=== PATIENT | female | born 1950 | race Caucasian/White ===

== ENCOUNTER 2018-05-24 16:51 | Inpatient (IN) ==
[2018-05-24] MEDS ORDERED: Sod Chloride 0.9% Inj 1,000 ML IV.CONT SCH (17:15)
--- NOTE | 2018-05-24 17:34 | ED ---
HPI General Chief Complaint: Recheck/Abnormal Lab/Rx Stated Complaint: Sent by dr Time Seen by Provider: 05/24/18 17:01 Source: patient and family Mode of arrival: ambulatory Limitations: no limitations History of Present Illness HPI narrative: 67-year-old female states she had a gallbladder attack a couple weeks ago but by the time she got and she was better. She states she started having one again yesterday and Dr. Almanzar had her do blood work as an outpatient and said she had pancreatitis and she did come here for emergent surgery. Patient denies other complaints other than abdominal pain. Quality is sharp. complaint: abnormal lab Symptoms since prior visit: worsening pain Context: called for abnormal lab result Associated symptoms: abdominal pain Related Data Home Medications Medication Instructions Recorded Confirmed cetirizine [Zyrtec] 10 mg PO DAILY 04/28/18 05/24/18 cholecalciferol (vitamin D3) 1,000 unit PO DAILY 04/28/18 05/24/18 [Vitamin D3] cyclosporine [Restasis] 1 drp OPHTHALMIC (EYE) Q12H 04/28/18 05/24/18 estradiol 1 patch TRANSDERMAL QWEEK 04/28/18 05/24/18 fluoxetine 10 mg PO DAILY 04/28/18 05/24/18 fluticasone 1 spray INTRANASAL DAILY 04/28/18 05/24/18 liothyronine 5 mcg PO DAILY 04/28/18 05/24/18 omeprazole 20 mg PO DAILY 04/28/18 05/24/18 thyroid (pork) [Nature-Throid] 65 mg PO DAILY 04/28/18 05/24/18 Allergies Allergy/AdvReac Type Severity Reaction Status Date / Time No Known Allergies Allergy Unverified 04/28/18 16:28 Review of Systems ROS: all other systems reviewed are negative [facility] Medical History Medical History GERD (gastroesophageal reflux disease) (Chronic) Hypothyroidism (Chronic) Post-menopausal (Chronic) H/O: hysterectomy (Resolved) Hx of thyroid cancer (Resolved) Surgical History Surgical History H/O laminectomy (Resolved) H/O tubal ligation (Resolved) Hx of appendectomy (Resolved) Social History Social History Second Hand Smoke Exposure: No Smoking Status: Unknown if ever smoked How Often Do You Have a Drink Containing Alcohol: Unable to Obtain Recent Travel in [place] within the Last 8 Weeks: No Recent Out of Country Travel within the Last 8 Weeks: No Exam Narrative Exam Narrative: GENERAL: 67 y/o female in no apparent distress SKIN: Focused skin assessment warm/dry. HEAD: Atraumatic. Normocephalic. EYES: Pupils equal and round. No scleral icterus. No injection or drainage. ENT: No nasal bleeding or discharge. Mucous membranes pink and moist. NECK: Trachea midline. No JVD. CARDIOVASCULAR: Regular rate and rhythm. RESPIRATORY: No accessory muscle use. Clear to auscultation. Breath sounds equal bilaterally. GASTROINTESTINAL: Abdomen soft, mild ttp diffusely, nondistended. MUSCULOSKELETAL: No obvious deformities. No clubbing. No cyanosis. No edema. NEUROLOGICAL: Awake and alert. No obvious cranial nerve deficits. Motor grossly within normal limits. Normal speech. Course Reevaluation(s) Reevaluation #1: Patient updated and agrees to admission, provided morphine for pain control Consultations Consultation #1: Dr. Almanzar states to check CT abdomen pelvis and admit for medicine with GI consult for likely gallstone pancreatitis Consultation #2: dr kwan states to admit full inpatient Initial Documented Vital Signs Temperature 97.9 F 05/24/18 16:55 Pulse Rate 86 05/24/18 16:55 Respiratory Rate 12 05/24/18 16:55 Blood Pressure 123/73 05/24/18 16:55 Pulse Oximetry 97 05/24/18 16:55 Last Documented Vital Signs Temperature 97.9 F 05/24/18 16:55 Pulse Rate 75 05/24/18 18:15 Respiratory Rate 20 05/24/18 18:15 Blood Pressure 135/87 05/24/18 18:15 Pulse Oximetry 97 05/24/18 16:55 Medical Decision Making MDM Narrative Medical decision making narrative: Will repeat blood work and discuss with her surgeon Medical Screen Exam Complete: Yes Emergency Medical Condition: Yes Differential Diagnosis Differential Diagnosis: Gallstone pancreatitis, pancreatitis, cholecystitis Lab Data Lab results reviewed: Yes I reviewed the patient's lab results. Result diagrams: 05/24/18 17:18 05/24/18 17:18 Lab Results 05/24/18 05/24/18 Range/Units 17:18 17:18 WBC 11.6 H (4.0-11.0) th/mm3 RBC 4.48 (4.00-5.30) mil/mm3 Hgb 13.3 (11.6-15.3) gm/dL Hct 39.2 (35.0-46.0) % MCV 87.4 (80.0-100.0) fL MCH 29.7 (27.0-34.0) pg MCHC 34.0 (32.0-36.0) % RDW 13.4 (11.6-17.2) % Plt Count 135 L (150-450) th/mm3 MPV 8.8 (7.0-11.0) fL Neut % (Auto) 92.0 H (16.0-70.0) % Lymph % (Auto) 3.7 L (9.0-44.0) % Parke % (Auto) 3.3 (0.0-8.0) % Eos % (Auto) 0.7 (0.0-4.0) % Baso % (Auto) 0.3 (0.0-2.0) % Neut # (Auto) 10.7 H (1.8-7.7) th/mm3 Lymph # (Auto) 0.4 L (1.0-4.8) th/mm3 Parke # (Auto) 0.4 (0.0-0.9) th/mm3 Eos # (Auto) 0.1 (0.0-0.4) th/mm3 Baso # (Auto) 0.0 (0.0-0.2) th/mm3 WBC Differential . Differential Comment Auto diff final Sodium 137 (136-145) meq/L Potassium 3.5 (3.5-5.1) meq/L Chloride 98 (98-107) meq/L Carbon Dioxide 27.7 (21.0-32.0) meq/L Anion Gap 11 (5-15) meq/L BUN 11 (7-18) mg/dL Creatinine 0.76 (0.50-1.00) mg/dL Estimated GFR 76 L (>89) mL/min Random Glucose 96 (74-106) mg/dL Calcium 8.5 (8.5-10.1) mg/dL Total Bilirubin 4.3 H (0.2-1.0) mg/dL AST 241 H (15-37) U/L ALT 398 H (10-53) U/L Alkaline Phosphatase 159 H (45-117) U/L Total Protein 7.2 (6.4-8.2) g/dL Albumin 3.5 (3.4-5.0) g/dL Lipase 339 (73-393) U/L Discharge Plan Discharge Disposition Patient Disposition: 30 Still Patient Discharge Details Diagnosis: Elevated LFTs, Abdominal pain Physicians Team ED Provider: Elvira Hernandes Primary Care Provider: Rebeca Spencer Attending Provider: Aydin Kwan Other Providers: Page Smith Discharge Interventions Interventions: Vital Signs Last Done: 05/24/18 18:15 Status ED Status: Admitted Patient
[2018-05-24] MEDS ORDERED: Morphine Inj 4 MG/ML Vial IV.PUSH ONE (17:35)
[2018-05-24 17:39] LABS: Baso % (Auto) 0.3 % (0.0-2.0); Eos # (Auto) 0.1 th/mm3 (0.0-0.4); Eos % (Auto) 0.7 % (0.0-4.0); Hematocrit 39.2 % (35.0-46.0); Hemoglobin 13.3 gm/dL (11.6-15.3); Lymph # (Auto) 0.4 th/mm3 (1.0-4.8); Lymph % (Auto) 3.7 % (9.0-44.0); Mean Corpuscular Hemoglobin 29.7 pg (27.0-34.0); Mean Corpuscular Volume 87.4 fL (80.0-100.0); Mean Platelet Volume 8.8 fL (7.0-11.0); Mono # (Auto) 0.4 th/mm3 (0.0-0.9); Mono % (Auto) 3.3 % (0.0-8.0); Neut # (Auto) 10.7 th/mm3 (1.8-7.7); Platelet Count 135 th/mm3 (150-450); Red Blood Count 4.48 mil/mm3 (4.00-5.30); Red Cell Distribution Width 13.4 % (11.6-17.2); White Blood Count 11.6 th/mm3 (4.0-11.0)
[2018-05-24 17:56] LABS: Alanine Aminotransferase 398 U/L (10-53); Albumin 3.5 g/dL (3.4-5.0); Anion Gap 11 meq/L (5-15); Aspartate Aminotransferase 241 U/L (15-37); Blood Urea Nitrogen 11 mg/dL (7-18); Calcium 8.5 mg/dL (8.5-10.1); Carbon Dioxide 27.7 meq/L (21.0-32.0); Chloride 98 meq/L (98-107); Glomerular Filtration Rate 76 mL/min (>89); Glucose,Random 96 mg/dL (74-106); Lipase 339 U/L (73-393); Potassium 3.5 meq/L (3.5-5.1); Sodium 137 meq/L (136-145)
[2018-05-24 17:58] LABS: Alkaline Phosphatase 159 U/L (45-117); Total Protein 7.2 g/dL (6.4-8.2)
[2018-05-24] MEDS ORDERED: Bisacodyl 10 MG Supp RECTAL PRN (18:07)
--- NOTE | 2018-05-24 18:27 | P.HPIM ---
History of Present Illness Primary Care Physician: Rebeca Spencer MD Chief Complaint: Abdominal pain History of Present Illness: Mrs. Patricia is a 67 y/o female with GERD, Le's esophagus, CHAPIS, and hx of medullary thyroid cancer. She presented to the ED at [facility] on 05/24/18 with complaints of abdominal. She states that this began about 1 month ago intermittently and was seen at [facility] urgent care for evaluation. She was sent for labs and abdominal US. Her labs on 04/26/18 revealed TBili 4.5, AST 269, ALT 362 , AlkPhos 166. Her Abd US (04/26/18) revealed numerous gallstones, mild gallbladder wall thickening with distension of the gallbladder and a dilated CBD to 9.4mm with no filing defects noted. Pt was sent to see GI as an outpt. Repeat labs on 04/28/18 noted Tbili 0.6, AST 45, ALT 162, AlkPhos 133 and lipase 354. 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 Pt had followed up with General Surgery, Dr. Lynch, and pt states that she had been planned for outpt cholecystectomy tomorrow. Yesterday she developed increased abdominal pain, N/V and was sent for repeat blood work today by her surgeon. The blood work revealed Tbili 4.6, DBili 3.8, AST 311, AlkPhos 439, AlkPhos 164, Lipase 937. Pt was recommended to come to the ED for further evaluation. Her repeat labs after arriving to the ED noted Tbili 4.3, AST 241, ALT 398, AlkPhos 159. Pt was given pain medications and antiemetics and is currently comfortable and denies any nausea/vomiting. Past Medical Hx: Anxiety Arthritis Hx of Le's esophagus GERD Hx of medullary thyroid cancer s/p thyroidectomy Hypothyroidism Depression Allergic rhinitis Past Surgical Hx: Thyroidectomy Appendectomy Tubal ligation Hysterectomy Laparoscopy Lumbar laminectomy EGD/colonoscopy on 04/08/2017 --> reflux esophagitis, acute gastritis, mild diverticulosis, internal hemorrhoids Family Hx: Father with hx of colon cancer, bone cancer, thyroid cancer Brother with hx of thyroid cancer Social Hx: Rare social alcohol use Denies any tobacco or illicit drug use - Diagnosis (1) Pancreatitis (2) Elevated LFTs (3) Abdominal pain Inpatient Certification: I certify that the inpatient services were ordered in accordance with Medicare regulations governing the order. This includes certification that hospital inpatient services are reasonable and necessary and in the case of services not specified as inpatient-only under 42 CFR 419.22(n), that they are appropriately provided as inpatient services in accordance to with the 2-midnight benchmark under 43 CFR 412.3(e) Estimated Total Length of Stay (Days): 3 Plans for Post Hospital Care: Not yet determined Review of Systems Constitutional: Denies chills, Denies fever(s) Eyes: Denies change in vision, Denies double vision, Denies loss of vision Ears, Nose, Mouth, and Throat: Denies dizziness, Denies headache(s), Denies nasal congestion, Denies nasal discharge, Denies sore throat Cardiovascular: Denies chest pain, Denies rapid, pounding, or irregular heartbeat, Denies shortness of breath Respiratory: Denies cough, Denies shortness of breath with activity Gastrointestinal: Reports abdominal pain, Reports nausea, Reports vomiting, Denies difficulty swallowing Genitourinary: Denies urinary incontinence, Denies urinary urgency Musculoskeletal: Denies back pain, Denies neck pain Skin/Breast: Denies redness, Denies wounds, Denies yellowing of the skin Neurologic: Denies memory loss, Denies tingling/numbness/burning sensations PMFSH - History History Provided By: Patient - Medical History Medical History: Medical History (Last Reviewed 05/24/18 @ 17:32 by Elvira Hernandes MD) GERD (gastroesophageal reflux disease) Hypothyroidism Post-menopausal H/O: hysterectomy Hx of thyroid cancer - Surgical History Surgical History: Surgical History (Last Reviewed 05/24/18 @ 17:32 by Elvira Hernandes MD) H/O laminectomy H/O tubal ligation Hx of appendectomy - Tobacco History Second Hand Smoke Exposure: No Smoking Status: Unknown if ever smoked - Alcohol History How Often Do You Have a Drink Containing Alcohol: Unable to Obtain - Travel History Recent Travel in the [place] Within the Last 8 Weeks: No Recent Travel Out of the Country Within the Last 8 Weeks: No - Immunization History Tetanus Immunization: Unsure Medications and Allergies Allergies Allergy/AdvReac Type Severity Reaction Status Date / Time No Known Allergies Allergy Unverified 04/28/18 16:28 Home Medications Medication Instructions Recorded Confirmed Type cetirizine [Zyrtec] 10 mg PO DAILY 04/28/18 05/24/18 History cholecalciferol (vitamin D3) 1,000 unit PO DAILY 04/28/18 05/24/18 History [Vitamin D3] cyclosporine [Restasis] 1 drp OPHTHALMIC (EYE) Q12H 04/28/18 05/24/18 History estradiol 1 patch TRANSDERMAL QWEEK 04/28/18 05/24/18 History fluoxetine 10 mg PO DAILY 04/28/18 05/24/18 History fluticasone 1 spray INTRANASAL DAILY 04/28/18 05/24/18 History liothyronine 15 mcg PO EVERY OTHER DAY 04/28/18 05/24/18 History omeprazole 20 mg PO DAILY 04/28/18 05/24/18 History thyroid (pork) [Nature-Throid] 65 mg PO DAILY 04/28/18 05/24/18 History liothyronine 20 mcg PO EVERY OTHER DAY 05/24/18 05/24/18 History Active Medications: Active Medications Acetaminophen (Tylenol) 650 mg PO Q4H PRN PRN Reason: Temp > 100.4 Al Hydroxide/Mg Hydroxide (Milk Of Magnesia Liq) 30 ml PO Q12H PRN PRN Reason: Mild Constipation Bisacodyl (Dulcolax Supp) 10 mg RECTAL DAILY PRN PRN Reason: SEVERE CONSITIPATION Sodium Chloride (Ns Inj) 1,000 mls @ 125 mls/hr IV.CONT .Q8H ELYSIA Stop: 05/25/18 01:14 Last Admin: 05/24/18 17:25 Dose: 125 mls/hr Lactulose (Lactulose Liq) 30 ml PO DAILY PRN PRN Reason: SEVERE CONSITIPATION Morphine Sulfate (Morphine Inj) 4 mg IV.PUSH Q4H PRN PRN Reason: pain 2-10 Ondansetron HCl (Zofran Inj) 4 mg IV.PUSH Q6H PRN PRN Reason: NAUSEA OR VOMITING Senna/Docusate Sodium (Donna-Colace) 1 tab PO BID ELYSIA Sennosides (Senokot) 17.2 mg PO Q12H PRN PRN Reason: Moderate Constipation Sodium Chloride (Ns Flush) 2 ml IV.FLUSH PRN PRN PRN Reason: FLUSH AFTER USING IV ACCESS Exam Vital signs: Vital Signs 05/24/18 16:55 05/24/18 18:15 Temperature 97.9 F Pulse Rate 86 75 Respiratory Rate 12 20 Blood Pressure 123/73 135/87 Pulse Oximetry 97 Intake & Output 05/23/18 05/24/18 05/24/18 18:59 06:59 18:59 Weight 74.843 kg Narrative: GENERAL: NAD, AAOx3 SKIN: Warm and dry. HEAD: Atraumatic. Normocephalic. EYES: Pupils equal and round. No scleral icterus. No injection or drainage. ENT: No nasal bleeding or discharge. Mucous membranes pink and moist. NECK: Trachea midline. No JVD. CARDIOVASCULAR: Regular rate and rhythm. RESPIRATORY: No accessory muscle use. Clear to auscultation. Breath sounds equal bilaterally. GASTROINTESTINAL: Abdomen soft, non-tender, nondistended. Hepatic and splenic margins not palpable. MUSCULOSKELETAL: Extremities without clubbing, cyanosis, or edema. No obvious deformities. NEUROLOGICAL: Awake and alert. No obvious cranial nerve deficits. Motor grossly within normal limits. Five out of 5 muscle strength in the arms and legs. Normal speech. PSYCHIATRIC: Appropriate mood and affect; insight and judgment normal. Results - Labs CBC & Chem 7: 05/25/18 04:08 05/28/18 04:28 Labs: Short CBC 05/24/18 Range/Units 17:18 WBC 11.6 H (4.0-11.0) th/mm3 Hgb 13.3 (11.6-15.3) gm/dL Hct 39.2 (35.0-46.0) % Plt Count 135 L (150-450) th/mm3 BMP 05/24/18 17:18 Sodium 137 Potassium 3.5 Chloride 98 Carbon Dioxide 27.7 BUN 11 Creatinine 0.76 Calcium 8.5 Liver Function 05/24/18 Range/Units 17:18 Total Bilirubin 4.3 H (0.2-1.0) mg/dL AST 241 H (15-37) U/L ALT 398 H (10-53) U/L Alkaline Phosphatase 159 H (45-117) U/L Albumin 3.5 (3.4-5.0) g/dL Caprini VTE Risk Assessment Caprini VTE Risk Assessment: Moderate/High Risk (score >= 2) Caprini Risk Assessment Model: Point Value = 1 Point Value = 2 Point Value = 3 Point Value = 5 Age 41-60 Minor surgery BMI > 25 kg/m2 Swollen legs Varicose veins or History of unexplained or recurrent spontaneous Oral contraceptives or hormone replacement Sepsis (< 1 month) Serious lung disease, including pneumonia (< 1 month) Abnormal pulmonary function Acute myocardial infarction Congestive heart failure (< 1 month) History of inflammatory bowel disease Medical patient at bed rest Age 61-74 Arthroscopic surgery Major open surgery (> 45 min) Laparoscopic surgery (> 45 min) Malignancy Confined to bed (> 72 hours) Immobilizing plaster cast Central venous access Age >= 75 History of VTE Family history of VTE Factor V Leiden Prothrombin [id number] Lupus anticoagulant Anticardiolipin antibodies Elevated serum homocysteine Heparin-induced thrombocytopenia Other congenital or acquired thrombophilia Stroke (< 1 month) Elective arthroplasty Hip, pelvis, or leg fracture Acute spinal cord injury (< 1 month) Prophylaxis Regimen: Total Risk Factor Score Risk Level Prophylaxis Regimen 0-1 Low Early ambulation 2 Moderate Order ONE of the following: *Sequential Compression Device (SCD) *Heparin 5000 units SQ BID 3-4 Higher Order ONE of the following medications: *Heparin 5000 units SQ TID *Enoxaparin/Lovenox 40 mg SQ daily (WT < 150 kg, CrCl > 30 mL/min) *Enoxaparin/Lovenox 30 mg SQ daily (WT < 150 kg, CrCl > 10-29 mL/min) *Enoxaparin/Lovenox 30 mg SQ BID (WT < 150 kg, CrCl > 30 mL/min) AND/OR *Sequential Compression Device (SCD) 5 or more Highest Order ONE of the following medications: *Heparin 5000 units SQ TID (Preferred with Epidurals) *Enoxaparin/Lovenox 40 mg SQ daily (WT < 150 kg, CrCl > 30 mL/min) *Enoxaparin/Lovenox 30 mg SQ daily (WT < 150 kg, CrCl > 10-29 mL/min) *Enoxaparin/Lovenox 30 mg SQ BID (WT < 150 kg, CrCl > 30 mL/min) AND *Sequential Compression Device (SCD) Assessment and Plan - Assessment (1) Pancreatitis Code(s): K85.90 - Acute pancreatitis without necrosis or infection, unspecified Status: Acute Plan: Pancreatitis, likely related to gallstones Elevated LFTs Abdominal pain - Pt is a 67 y/o female with GERD, Le's esophagus, CHAPIS, and hx of medullary thyroid cancer. - She presented to the ED at [facility] on 05/24/18 with complaints of abdominal, which began about 1 month ago intermittently - Outpt labs on 04/26/18 revealed TBili 4.5, AST 269, ALT 362, AlkPhos 166. - Outpt Abd US (04/26/18) revealed numerous gallstones, mild gallbladder wall thickening with distension of the gallbladder and a dilated CBD to 9.4mm with no filing defects noted. - Pt was sent to see GI as an outpt. Repeat labs on 04/28/18 noted Tbili 0.6, AST 45, ALT 162, AlkPhos 133 and lipase 354. 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 - Pt had followed up with General Surgery, Dr. Lynch, and pt states that she had been planned for outpt cholecystectomy tomorrow. Yesterday she developed increased abdominal pain, N/V and was sent for repeat blood work today by her surgeon. - Outpt blood work (05/24) revealed Tbili 4.6, DBili 3.8, AST 311, AlkPhos 439, AlkPhos 164, Lipase 937. Pt was recommended to come to the ED for further evaluation. Her repeat labs after arriving to the ED noted Tbili 4.3, AST 241, ALT 398, AlkPhos 159. - IVF - Pain control PRN - Antiemetics PRN - Keep pt NPO except meds for now - Repeat labs in AM - MRCP - Consult GI for further recommendations - May need General Surgery consult in AM - Supportive care - Further recommendations as the case develops - DVT prophylaxis with SCDs for now Hypothyroidism Hx of medullary thyroid cancer - Cont. home meds, Cytomel 15mg alternating with 20mcg dose every other day GERD Hx of Le's esophagus - PPI (2) Elevated LFTs Code(s): R94.5 - Abnormal results of liver function studies Status: Acute (3) Abdominal pain Code(s): R10.9 - Unspecified abdominal pain Status: Acute - Attending Attestation Patient examined. Assessment and plan formulated with Orly SHEFFIELD I agree with the above. (3) Abdominal pain Qualifiers: Abdominal location: unspecified location Qualified Code(s): R10.9 - Unspecified abdominal pain
[2018-05-24] MEDS ORDERED: CYCLOSPORINE EACH EYE SCH (21:00)
[2018-05-24] MEDS ORDERED: Gadobutrol PF 7.5 MMOL/7.5 ML Vial (for RAD) IV.SIG ONE (21:44)
--- NOTE | 2018-05-24 23:28 | MR ---
EXAM DATE: 05/24/2018 10:25 PM EDT AGE/SEX: 67 years / Female INDICATIONS: Obstruction. Patient had IPMN noted on outpt MRCP 05/07/18 for compare, now gallstone panc reatis CLINICAL DATA: This is the patient's subsequent encounter. Patient reports that signs and symptoms h ave been present for 3 days and indicates a pain score of 8/10. MEDICAL/SURGICAL HISTORY: Carcinoma, thyroid. Thyroidectomy. Appendectomy. Hysterectomy. Tub al, Lamenectomy. COMPARISON: [facility], MRCP, 05/07/2018. . TECHNIQUE: Multisequence, multiplanar MRI examination was performed without contrast and after the in travenous administration of 8 ml Gadavist (gadobutrol) contrast as a single exam dose. FINDINGS: Liver: The liver is homogeneous and normal in signal intensity with no focal defects. Intrahepatic Bile Ducts: There is no intrahepatic biliary ductal dilatation. Common Bile Duct: Common bile duct measures 7 to 8 mm in diameter. No filling defects identified. Gallbladder: Multiple gallstones are again identified. No evidence of gallbladder wall thickening. Pancreas: The 1 cm thin elongated T2 hyperintensity indicating with the main pancreatic duct in the pancreatic body is again seen and unchanged. Pancreas otherwise within normal limits. CONCLUSION: 1. Cholelithiasis again noted. 2. Common duct is mildly prominent measuring 7 to 8 mm in diameter. This is an increase of 1 mm over the prior study. No filling defects identified within the common duct. No intrahepatic biliary ducta l dilatation is seen. 3. The thin linear T2 hyperintensity in the pancreatic body is unchanged again possibly representin g a side branch IPMN. Electronically signed by: Nicholas Hernandez MD 05/24/2018 11:27 PM EDT
[2018-05-25] MEDS: Senna/Docusate Sodium 8.6/50 MG Tablet PO SCH ×3 (02:36→20:21)
[2018-05-25] MEDS: Acetaminophen 325 MG Tablet PO PRN (02:54)
[2018-05-25] MEDS: Morphine Inj 4 MG/ML Vial IV.PUSH PRN ×2 (02:54→20:21)
[2018-05-25 04:49] LABS: Baso % (Auto) 0.3 % (0.0-2.0); Eos # (Auto) 0.2 th/mm3 (0.0-0.4); Eos % (Auto) 2.3 % (0.0-4.0); Hematocrit 35.4 % (35.0-46.0); Hemoglobin 12.3 gm/dL (11.6-15.3); Lymph # (Auto) 0.6 th/mm3 (1.0-4.8); Lymph % (Auto) 6.7 % (9.0-44.0); Mean Corpuscular HGB Conc 34.6 % (32.0-36.0); Mean Corpuscular Hemoglobin 29.9 pg (27.0-34.0); Mean Corpuscular Volume 86.3 fL (80.0-100.0); Mean Platelet Volume 9.1 fL (7.0-11.0); Mono # (Auto) 0.3 th/mm3 (0.0-0.9); Mono % (Auto) 3.2 % (0.0-8.0); Neut # (Auto) 7.8 th/mm3 (1.8-7.7); Neut % (Auto) 87.5 % (16.0-70.0); Platelet Count 115 th/mm3 (150-450); Red Cell Distribution Width 13.5 % (11.6-17.2); White Blood Count 8.9 th/mm3 (4.0-11.0)
[2018-05-25 05:12] LABS: Albumin 3.1 g/dL (3.4-5.0); Anion Gap 9 meq/L (5-15); Aspartate Aminotransferase 134 U/L (15-37); Blood Urea Nitrogen 13 mg/dL (7-18); Calcium 8.3 mg/dL (8.5-10.1); Carbon Dioxide 25.7 meq/L (21.0-32.0); Chloride 104 meq/L (98-107); Glomerular Filtration Rate Greater Than 89 mL/min (>89); Glucose,Random 80 mg/dL (74-106); Lipase 78 U/L (73-393); Potassium 3.4 meq/L (3.5-5.1); Sodium 139 meq/L (136-145)
[2018-05-25 05:13] LABS: Alanine Aminotransferase 277 U/L (10-53)
[2018-05-25 05:17] LABS: Alkaline Phosphatase 133 U/L (45-117); Total Protein 6.3 g/dL (6.4-8.2)
[2018-05-25] MEDS: Thyroid 60 MG Tablet PO SCH (08:40)
--- NOTE | 2018-05-25 11:14 | P.CONGI ---
History of Present Illness Consult date: 05/25/18 Consult reason: Gallstone pancreatitis Chief complaint: Gallstone Pancreatitis History of Present Illness: This is a 67-year-old female who came to the hospital on 05/24/2018 with complaints of mid to right upper quadrant abdominal pain onset of symptoms was approximately 1 month ago and has waxed and waned but returned with a pain scale of 10 out of 10 in the past 2 days. Patient was seen per her surgeon Dr. Almanzar who had planned a cholecystectomy today and told her to come to the emergency room for further evaluation. Patient notes some increased dyspepsia with this abdominal pain but states she also has a history of Le's esophagus and had EGD colonoscopy approximately a year ago with Dr. Smith. Patient takes Prilosec daily currently denies any dysphasia. Patient did note some nausea and vomiting approximately 24 hours ago several times but that has calmed down as well as the abdominal pain has gradually began to ease up. According to the record patient initially had dilated common bile duct at 9.4 with no filling defect. Initial bilirubin was 4.3 now 1.8, lipase was 339 now 78, alkaline phosphatase 133, AST 134, ALT 277. MRCP according to the record on 05/07/2018 did also notes some mild hepatic steatosis and a thin 1 cm elongated T2 hyperintense structure communicating with the main pancreatic duct at the level of the pancreatic body. 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 Gastroenterology was consulted to assist with her gallstone pancreatitis and plan of care patient. The active bleeding no hematemesis and no rectal bleeding ;no diarrhea or constipation issues <Pushpa Godinez - Last Filed: 05/25/18 11:03> Review of Systems All other systems reviewed negative except as stated in HPI <Pushpa Godinez - Last Filed: 05/25/18 11:03> PMFSH - History History Provided By: Patient - Medical History Medical History: Medical History (Last Reviewed 05/24/18 @ 17:32 by Elvira Hernandes MD) GERD (gastroesophageal reflux disease) Hypothyroidism Post-menopausal H/O: hysterectomy Hx of thyroid cancer - Surgical History Surgical History: Surgical History (Last Reviewed 05/24/18 @ 17:32 by Elvira Hernandes MD) H/O laminectomy H/O tubal ligation Hx of appendectomy - Tobacco History Second Hand Smoke Exposure: No Smoking Status: Never smoker - Alcohol History How Often Do You Have a Drink Containing Alcohol: Monthly or less - Substance Use History Substance History: No History of Abuse - Travel History Recent Travel in the [place] Within the Last 8 Weeks: No Recent Travel Out of the Country Within the Last 8 Weeks: No - Immunization History Tetanus Immunization: Unsure <Pushpa Godinez - Last Filed: 05/25/18 11:03> - Medical History Medical History: Medical History (Last Reviewed 05/24/18 @ 17:32 by Elvira Hernandes MD) GERD (gastroesophageal reflux disease) Hypothyroidism Post-menopausal H/O: hysterectomy Hx of thyroid cancer - Surgical History Surgical History: Surgical History (Last Reviewed 05/24/18 @ 17:32 by Elvira Hernandes MD) H/O laminectomy H/O tubal ligation Hx of appendectomy <Page Smith - Last Filed: 05/25/18 16:01> Medications and Allergies Active Medications: Active Medications Acetaminophen (Tylenol) 650 mg PO Q4H PRN PRN Reason: Temp > 100.4 Last Admin: 05/25/18 02:54 Dose: 650 mg Al Hydroxide/Mg Hydroxide (Milk Of Magnesia Liq) 30 ml PO Q12H PRN PRN Reason: Mild Constipation Bisacodyl (Dulcolax Supp) 10 mg RECTAL DAILY PRN PRN Reason: SEVERE CONSITIPATION Cetirizine HCl (Zyrtec) 10 mg PO DAILY [facility] Fluoxetine HCl (Prozac) 10 mg PO DAILY [facility] Fluticasone Propionate (Flonase Nasal [place]) 1 spray EACH NARE DAILY [facility] Lactulose (Lactulose Liq) 30 ml PO DAILY PRN PRN Reason: SEVERE CONSITIPATION Liothyronine Sodium (Cytomel) 15 mcg PO Q48H [facility] Liothyronine Sodium (Cytomel) 20 mcg PO Q48H [facility] Morphine Sulfate (Morphine Inj) 4 mg IV.PUSH Q4H PRN PRN Reason: pain 2-10 Last Admin: 05/25/18 02:54 Dose: 4 mg Ondansetron HCl (Zofran Inj) 4 mg IV.PUSH Q6H PRN PRN Reason: NAUSEA OR VOMITING Pt Own Cyclosporine ([Restasis] 1 Drp)) 1 each EACH EYE BID [facility] Senna/Docusate Sodium (Donna-Colace) 1 tab PO BID [facility] Last Admin: 05/25/18 02:36 Dose: Not Given Sennosides (Senokot) 17.2 mg PO Q12H PRN PRN Reason: Moderate Constipation Sodium Chloride (Ns Flush) 2 ml IV.FLUSH PRN PRN PRN Reason: FLUSH AFTER USING IV ACCESS Thyroid ([place] Thyroid) 60 mg PO DAILY@0600 [facility] Last Admin: 05/25/18 08:40 Dose: Not Given <Pushpa Godinez - Last Filed: 05/25/18 11:03> Active Medications: Active Medications Acetaminophen (Tylenol) 650 mg PO Q4H PRN PRN Reason: Temp > 100.4 Last Admin: 05/25/18 02:54 Dose: 650 mg Al Hydroxide/Mg Hydroxide (Milk Of Magnesia Liq) 30 ml PO Q12H PRN PRN Reason: Mild Constipation Bisacodyl (Dulcolax Supp) 10 mg RECTAL DAILY PRN PRN Reason: SEVERE CONSITIPATION Cetirizine HCl (Zyrtec) 10 mg PO DAILY [facility] Last Admin: 05/25/18 12:20 Dose: Not Given Fluoxetine HCl (Prozac) 10 mg PO DAILY [facility] Last Admin: 05/25/18 12:20 Dose: Not Given Fluticasone Propionate (Flonase Nasal [place]) 1 spray EACH NARE DAILY [facility] Last Admin: 05/25/18 12:20 Dose: Not Given Lactulose (Lactulose Liq) 30 ml PO DAILY PRN PRN Reason: SEVERE CONSITIPATION Liothyronine Sodium (Cytomel) 15 mcg PO Q48H [facility] Liothyronine Sodium (Cytomel) 20 mcg PO Q48H [facility] Morphine Sulfate (Morphine Inj) 4 mg IV.PUSH Q4H PRN PRN Reason: pain 2-10 Last Admin: 05/25/18 02:54 Dose: 4 mg Ondansetron HCl (Zofran Inj) 4 mg IV.PUSH Q6H PRN PRN Reason: NAUSEA OR VOMITING Pt Own Cyclosporine ([Restasis] 1 Drp)) 1 each EACH EYE BID [facility] Senna/Docusate Sodium (Donna-Colace) 1 tab PO BID [facility] Last Admin: 05/25/18 12:20 Dose: Not Given Sennosides (Senokot) 17.2 mg PO Q12H PRN PRN Reason: Moderate Constipation Sodium Chloride (Ns Flush) 2 ml IV.FLUSH PRN PRN PRN Reason: FLUSH AFTER USING IV ACCESS Thyroid ([place] Thyroid) 60 mg PO DAILY@0600 [facility] Last Admin: 05/25/18 08:40 Dose: Not Given <Page Smith - Last Filed: 05/25/18 16:01> Allergies Allergy/AdvReac Type Severity Reaction Status Date / Time No Known Allergies Allergy Unverified 04/28/18 16:28 Home Medications Medication Instructions Recorded Confirmed Type cetirizine [Zyrtec] 10 mg PO DAILY 04/28/18 05/24/18 History cholecalciferol (vitamin D3) 1,000 unit PO DAILY 04/28/18 05/24/18 History [Vitamin D3] cyclosporine [Restasis] 1 drp OPHTHALMIC (EYE) Q12H 04/28/18 05/24/18 History estradiol 1 patch TRANSDERMAL QWEEK 04/28/18 05/24/18 History fluoxetine 10 mg PO DAILY 04/28/18 05/24/18 History fluticasone 1 spray INTRANASAL DAILY 04/28/18 05/24/18 History liothyronine 15 mcg PO EVERY OTHER DAY 04/28/18 05/24/18 History omeprazole 20 mg PO DAILY 04/28/18 05/24/18 History thyroid (pork) [Nature-Throid] 65 mg PO DAILY 04/28/18 05/24/18 History liothyronine 20 mcg PO EVERY OTHER DAY 05/24/18 05/24/18 History Exam Vital signs: Vital Signs 05/24/18 16:55 05/24/18 18:15 05/24/18 20:00 Temperature 97.9 F 99.5 F Pulse Rate 86 75 74 Respiratory Rate 12 20 16 Blood Pressure 123/73 135/87 117/71 Pulse Oximetry 97 97 05/25/18 00:00 05/25/18 04:00 05/25/18 08:00 Temperature 99.4 F 98.8 F 97.8 F Pulse Rate 77 65 60 Respiratory Rate 16 16 16 Blood Pressure 124/70 114/57 L 106/61 Pulse Oximetry 96 94 L 98 Intake & Output 09/24/18 09/25/18 09/25/18 18:59 06:59 18:59 Intake Total 1000 / 1000 Balance 1000 / 1000 Weight 74.843 kg 76.5 kg Intake: IV 1000 / 1000 NS Inj 1,000 ML @ 125 mls/hr IV 1000 / 1000 .CONT .Q8H [facility] Rx#:[id number] - Constitutional mild distress, average body habitus, cooperative - Routine HEENT Exam Head: Present: normocephalic ENT: Present: mucous membranes moist - Routine Respiratory Exam Present: accessory muscle use - Routine Cardiovascular Exam Present: S1, S2 (No obvious shortness of breath) - Routine Abdominal Exam Present: soft (, Mild distention, soft bowel sounds, mild tenderness generalized but worsened in the mid and upper right upper quadrant) <Pushpa Godinez - Last Filed: 05/25/18 11:03> Vital signs: Vital Signs 05/24/18 16:55 05/24/18 18:15 05/24/18 20:00 Temperature 97.9 F 99.5 F Pulse Rate 86 75 74 Respiratory Rate 12 20 16 Blood Pressure 123/73 135/87 117/71 Pulse Oximetry 97 97 05/25/18 00:00 05/25/18 04:00 05/25/18 08:00 Temperature 99.4 F 98.8 F 97.8 F Pulse Rate 77 65 60 Respiratory Rate 16 16 16 Blood Pressure 124/70 114/57 L 106/61 Pulse Oximetry 96 94 L 98 05/25/18 12:00 Temperature 98.0 F Pulse Rate 63 Respiratory Rate 18 Blood Pressure 123/60 Pulse Oximetry 97 Intake & Output 05/24/18 05/25/18 05/25/18 18:59 06:59 18:59 Intake Total 1000 / 1000 Balance 1000 / 1000 Weight 74.843 kg 76.5 kg Intake: IV 1000 / 1000 NS Inj 1,000 ML @ 125 mls/hr IV 1000 / 1000 .CONT .Q8H [facility] Rx#:[id number] Other: Date of Last Bowel Movement 05/23/18 <Page Smith - Last Filed: 05/25/18 16:01> Results - Labs CBC & Chem 7: 05/25/18 04:08 05/25/18 04:08 Labs: Laboratory Results - last 24 hr 05/24/18 05/24/18 05/25/18 17:18 17:18 04:08 WBC 11.6 H 8.9 RBC 4.48 4.10 Hgb 13.3 12.3 Hct 39.2 35.4 MCV 87.4 86.3 MCH 29.7 29.9 MCHC 34.0 34.6 RDW 13.4 13.5 Plt Count 135 L 115 L MPV 8.8 9.1 Neut % (Auto) 92.0 H 87.5 H Lymph % (Auto) 3.7 L 6.7 L [place] % (Auto) 3.3 3.2 Eos % (Auto) 0.7 2.3 Baso % (Auto) 0.3 0.3 Neut # (Auto) 10.7 H 7.8 H Lymph # (Auto) 0.4 L 0.6 L [place] # (Auto) 0.4 0.3 Eos # (Auto) 0.1 0.2 Baso # (Auto) 0.0 0.0 WBC Differential . . Differential Comment Auto diff final Auto diff final Sodium 137 Potassium 3.5 Chloride 98 Carbon Dioxide 27.7 Anion Gap 11 BUN 11 Creatinine 0.76 Estimated GFR 76 L Random Glucose 96 Calcium 8.5 Total Bilirubin 4.3 H AST 241 H ALT 398 H Alkaline Phosphatase 159 H Total Protein 7.2 Albumin 3.5 Lipase 339 05/25/18 04:08 WBC RBC Hgb Hct MCV MCH MCHC RDW Plt Count MPV Neut % (Auto) Lymph % (Auto) [place] % (Auto) Eos % (Auto) Baso % (Auto) Neut # (Auto) Lymph # (Auto) [place] # (Auto) Eos # (Auto) Baso # (Auto) WBC Differential Differential Comment Sodium 139 Potassium 3.4 L Chloride 104 Carbon Dioxide 25.7 Anion Gap 9 BUN 13 Creatinine 0.59 Estimated GFR Greater than 89 Random Glucose 80 Calcium 8.3 L Total Bilirubin 1.8 H AST 134 H ALT 277 H Alkaline Phosphatase 133 H Total Protein 6.3 L D Albumin 3.1 L Lipase 78 - Imaging Impressions Cholangiopancreatography MRI 05/24/18 00:00 CONCLUSION: 1. Cholelithiasis again noted. 2. Common duct is mildly prominent measuring 7 to 8 mm in diameter. This is an increase of 1 mm over the prior study. No filling defects identified within the common duct. No intrahepatic biliary ductal dilatation is seen. 3. The thin linear T2 hyperintensity in the pancreatic body is unchanged again possibly representing a side branch IPMN. <Pushpa Godinez - Last Filed: 05/25/18 11:03> - Labs CBC & Chem 7: 05/25/18 04:08 05/25/18 04:08 Labs: Laboratory Results - last 24 hr 05/24/18 05/24/18 05/25/18 17:18 17:18 04:08 WBC 11.6 H 8.9 RBC 4.48 4.10 Hgb 13.3 12.3 Hct 39.2 35.4 MCV 87.4 86.3 MCH 29.7 29.9 MCHC 34.0 34.6 RDW 13.4 13.5 Plt Count 135 L 115 L MPV 8.8 9.1 Neut % (Auto) 92.0 H 87.5 H Lymph % (Auto) 3.7 L 6.7 L [place] % (Auto) 3.3 3.2 Eos % (Auto) 0.7 2.3 Baso % (Auto) 0.3 0.3 Neut # (Auto) 10.7 H 7.8 H Lymph # (Auto) 0.4 L 0.6 L [place] # (Auto) 0.4 0.3 Eos # (Auto) 0.1 0.2 Baso # (Auto) 0.0 0.0 WBC Differential . . Differential Comment Auto diff final Auto diff final Sodium 137 Potassium 3.5 Chloride 98 Carbon Dioxide 27.7 Anion Gap 11 BUN 11 Creatinine 0.76 Estimated GFR 76 L Random Glucose 96 Calcium 8.5 Total Bilirubin 4.3 H AST 241 H ALT 398 H Alkaline Phosphatase 159 H Total Protein 7.2 Albumin 3.5 Lipase 339 05/25/18 04:08 WBC RBC Hgb Hct MCV MCH MCHC RDW Plt Count MPV Neut % (Auto) Lymph % (Auto) [place] % (Auto) Eos % (Auto) Baso % (Auto) Neut # (Auto) Lymph # (Auto) [place] # (Auto) Eos # (Auto) Baso # (Auto) WBC Differential Differential Comment Sodium 139 Potassium 3.4 L Chloride 104 Carbon Dioxide 25.7 Anion Gap 9 BUN 13 Creatinine 0.59 Estimated GFR Greater than 89 Random Glucose 80 Calcium 8.3 L Total Bilirubin 1.8 H AST 134 H ALT 277 H Alkaline Phosphatase 133 H Total Protein 6.3 L D Albumin 3.1 L Lipase 78 - Imaging Impressions Cholangiopancreatography MRI 05/24/18 00:00 CONCLUSION: 1. Cholelithiasis again noted. 2. Common duct is mildly prominent measuring 7 to 8 mm in diameter. This is an increase of 1 mm over the prior study. No filling defects identified within the common duct. No intrahepatic biliary ductal dilatation is seen. 3. The thin linear T2 hyperintensity in the pancreatic body is unchanged again possibly representing a side branch IPMN. Bile Acid Absorption NM 05/25/18 00:00 CONCLUSION: 1. There is a poor gallbladder ejection fraction of approximately 5% following CCK. This is nonspecific but can be seen with chronic gallbladder disease. 2. No mechanical biliary tract obstruction. 3. Bile reflux. <Page Smith - Last Filed: 05/25/18 16:01> Assessment and Plan - Plan 67-year-old female who came to the hospital on 05/24/2018 with complaints of mid to right upper quadrant abdominal pain onset of symptoms was approximately 1 month ago and has waxed and waned but returned with a pain scale of 10 out of 10 in the past 2 days. Patient was seen per her surgeon Dr. Almanzar who had planned a cholecystectomy today and told her to come to the emergency room for further evaluation. Patient notes some increased dyspepsia with this abdominal pain but states she also has a history of Le's esophagus and had EGD colonoscopy approximately a year ago with Dr. Smith. Patient takes Prilosec daily currently denies any dysphasia. Patient did note some nausea and vomiting approximately 24 hours ago several times but that has calmed down as well as the abdominal pain has gradually began to ease up. According to the record patient initially had dilated common bile duct at 9.4 with no filling defect. Initial bilirubin was 4.3 now 1.8, lipase was 339 now 78, alkaline phosphatase 133, AST 134, ALT 277. MRCP according to the record on 05/07/2018 did also notes some mild hepatic steatosis and a thin 1 cm elongated T2 hyperintense structure communicating with the main pancreatic duct at the level of the pancreatic body. 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 Gastroenterology was consulted to assist with her gallstone pancreatitis and plan of care patient. The active bleeding no hematemesis and no rectal bleeding ;no diarrhea or constipation issues 05/24/2018 MRCP shows cholelithiasis again noted. Common bile duct is mildly prominent measuring 7-8 mm in diameter tree which is an increase of 1 mm over the prior study. No filling defects identified with the common bile duct no intrahepatic biliary ductal dilatation is seen. Thin linear T2 hyperintensity in the pancreatic body unchanged Currently patient is feeling somewhat gradually better and states the abdominal pain is less intense as well as the nausea and vomiting. Currently patient is n.p.o. pending further recommendations for evaluation. Pending stability and no other issues patient, plan is for probable lap cholecystectomy according to the record. Plan N.p.o. for now HIDA scan pending today Intraoperative cholangiogram ordered and is pending Pain meds per attending and nausea meds Bowel regimen Consider hydration for now Further recommendations to follow Patient was seen per myself and Dr. Smith, note was written on his behalf <Pushpa Godinez - Last Filed: 05/25/18 11:03> - Plan Seen and examined with [facility] SAL[facility]AGER, doing better today. Appears to have passed a stone. Was scheduled for cholecystectomy today as outpatient. HIDA scan ordered. Recommend cholecystectomy with IOC. Discussed with Dr Kwan and Naveen. Thank you The exam, history, and the medical decision-making described in the above note were completed with the assistance of the mid-level provider. I reviewed and agree with the findings presented. I attest that I had a [id number] encounter with the patient on the same day, and personally performed and documented my assessment and findings in the medical record. <Page Smith - Last Filed: 05/25/18 16:01>
[2018-05-25] MEDS: FLUoxetine 10 MG Capsule PO SCH (12:20)
[2018-05-25] MEDS ORDERED: Sincalide Inj 5 MCG Vial ONE (14:07)
--- NOTE | 2018-05-25 14:52 | NM ---
EXAM DATE: 05/25/2018 12:55 PM EDT AGE/SEX: 67 years / Female INDICATIONS: Abdominal pain for three days. Pancreatitis. CLINICAL DATA: This is the patient's initial encounter. Patient reports that signs and symptoms have been present for 1 day and indicates a pain score of 8/10. MEDICAL/SURGICAL HISTORY: Hypothyroidism. Gastroesophageal reflux disease. Hysterectomy. Tuba l ligation. COMPARISON: [facility], MRCP, 05/07/2018. . DOSE: 4.0 mCi Tc-99m mebrofenin i.v. Medication: 1.5 mcg Cholecystokinin IV No symptomatic response Cholecystokinin was administered by slow infusion over 8 minutes beginning at 75 minutes. TECHNIQUE: Following the intravenous administration of radiotracer, dynamic sequential images were pe rformed with continuous acquisition. Time-activity curves were generated. FINDINGS: Hepatic Kinetics: There is prompt uptake of radiotracer in the liver. No focal defects are seen. Ther e is normal rate of washout from the hepatic parenchyma. Biliary Clearance: Activity is first seen in the extrahepatic biliary system at 10 minutes. There is normal excretion into the small bowel. Gallbladder: Activity is first seen in the gallbladder at 60 minutes. Post-CCK: After CCK administration, there is poor emptying of the gallbladder with a 5% ejection frac tion. Common bile duct kinetics are normal and there is no evidence of biliary obstruction. No sympt omatic response after cholecystokinin infusion. Biliary-Enteric Reflux: There is tracer activity in the stomach consistent with bile reflux. CONCLUSION: 1. There is a poor gallbladder ejection fraction of approximately 5% following CCK. This is nonspeci fic but can be seen with chronic gallbladder disease. 2. No mechanical biliary tract obstruction. 3. Bile reflux. Electronically signed by: Omar Grijalva MD 05/25/2018 2:51 PM EDT
--- NOTE | 2018-05-25 16:30 | P.PNIM ---
Subjective Interval history: No further pain today. Pain denies nausea. Physical Exam Vital signs: 05/25/18 12:00 Temperature 98.0 F Pulse Rate 63 Respiratory Rate 18 Blood Pressure 123/60 Pulse Oximetry 97 Narrative: GENERAL: This is a well-nourished, well-developed patient, in no apparent distress. CARDIOVASCULAR: Regular rate and rhythm without murmurs, gallops, or rubs. RESPIRATORY: Clear to auscultation. Breath sounds equal bilaterally. No wheezes , rales, or rhonchi. GASTROINTESTINAL: Abdomen soft, non-tender, nondistended. Normal active bowel sounds MUSCULOSKELETAL: Extremities without clubbing, cyanosis, or edema. NEURO: Alert & Oriented x4 to person, place, time, situation. Moves all ext x4 Results - Labs CBC & Chem 7: 05/25/18 04:08 05/28/18 04:28 Laboratory Results - last 24 hr 05/24/18 05/24/18 05/25/18 17:18 17:18 04:08 WBC 11.6 H 8.9 RBC 4.48 4.10 Hgb 13.3 12.3 Hct 39.2 35.4 MCV 87.4 86.3 MCH 29.7 29.9 MCHC 34.0 34.6 RDW 13.4 13.5 Plt Count 135 L 115 L MPV 8.8 9.1 Neut % (Auto) 92.0 H 87.5 H Lymph % (Auto) 3.7 L 6.7 L [place] % (Auto) 3.3 3.2 Eos % (Auto) 0.7 2.3 Baso % (Auto) 0.3 0.3 Neut # (Auto) 10.7 H 7.8 H Lymph # (Auto) 0.4 L 0.6 L [place] # (Auto) 0.4 0.3 Eos # (Auto) 0.1 0.2 Baso # (Auto) 0.0 0.0 WBC Differential . . Differential Comment Auto diff final Auto diff final Sodium 137 Potassium 3.5 Chloride 98 Carbon Dioxide 27.7 Anion Gap 11 BUN 11 Creatinine 0.76 Estimated GFR 76 L Random Glucose 96 Calcium 8.5 Total Bilirubin 4.3 H AST 241 H ALT 398 H Alkaline Phosphatase 159 H Total Protein 7.2 Albumin 3.5 Lipase 339 05/25/18 04:08 WBC RBC Hgb Hct MCV MCH MCHC RDW Plt Count MPV Neut % (Auto) Lymph % (Auto) [place] % (Auto) Eos % (Auto) Baso % (Auto) Neut # (Auto) Lymph # (Auto) [place] # (Auto) Eos # (Auto) Baso # (Auto) WBC Differential Differential Comment Sodium 139 Potassium 3.4 L Chloride 104 Carbon Dioxide 25.7 Anion Gap 9 BUN 13 Creatinine 0.59 Estimated GFR Greater than 89 Random Glucose 80 Calcium 8.3 L Total Bilirubin 1.8 H AST 134 H ALT 277 H Alkaline Phosphatase 133 H Total Protein 6.3 L D Albumin 3.1 L Lipase 78 - Imaging Cholangiopancreatography MRI 05/24/18 00:00 1. Cholelithiasis again noted. 2. Common duct is mildly prominent measuring 7 to 8 mm in diameter. This is an increase of 1 mm over the prior study. No filling defects identified within the common duct. No intrahepatic biliary ductal dilatation is seen. 3. The thin linear T2 hyperintensity in the pancreatic body is unchanged again possibly representing a side branch IPMN. Bile Acid Absorption NM 05/25/18 00:00 CONCLUSION: 1. There is a poor gallbladder ejection fraction of approximately 5% following CCK. This is nonspecific but can be seen with chronic gallbladder disease. 2. No mechanical biliary tract obstruction. 3. Bile reflux. Assessment and Plan - Assessment (1) Pancreatitis Code(s): K85.90 - Acute pancreatitis without necrosis or infection, unspecified Status: Acute Plan: Pancreatitis, likely related to gallstones Elevated LFTs Abdominal pain - Pt is a 67 y/o female with GERD, Le's esophagus, CHAPIS, and hx of medullary thyroid cancer. - She presented to the ED at [facility] [place] on 05/24/18 with complaints of abdominal, which began about 1 month ago intermittently - Outpt labs on 04/26/18 revealed TBili 4.5, AST 269, ALT 362, AlkPhos 166. - Outpt Abd US (04/26/18) revealed numerous gallstones, mild gallbladder wall thickening with distension of the gallbladder and a dilated CBD to 9.4mm with no filing defects noted. - Pt was sent to see GI as an outpt. Repeat labs on 04/28/18 noted Tbili 0.6, AST 45, ALT 162, AlkPhos 133 and lipase 354. 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 - Pt had followed up with General Surgery, Dr. Lynch, and pt states that she had been planned for outpt cholecystectomy tomorrow. Yesterday she developed increased abdominal pain, N/V and was sent for repeat blood work today by her surgeon. - Outpt blood work (05/24) revealed Tbili 4.6, DBili 3.8, AST 311, AlkPhos 439, AlkPhos 164, Lipase 937. Pt was recommended to come to the ED for further evaluation. Her repeat labs after arriving to the ED noted Tbili 4.3, AST 241, ALT 398, AlkPhos 159. - IVF - Pain control PRN - Antiemetics PRN Cholangiopancreatography MRI 05/24/18 00:00 1. Cholelithiasis again noted. 2. Common duct is mildly prominent measuring 7 to 8 mm in diameter. This is an increase of 1 mm over the prior study. No filling defects identified within the common duct. No intrahepatic biliary ductal dilatation is seen. 3. The thin linear T2 hyperintensity in the pancreatic body is unchanged again possibly representing a side branch IPMN. Bile Acid Absorption NM 05/25/18 00:00 1. There is a poor gallbladder ejection fraction of approximately 5% following CCK. This is nonspecific but can be seen with chronic gallbladder disease. 2. No mechanical biliary tract obstruction. 3. Bile reflux. - bilirubin & LFTs are improving - Case d/w Gastroenterology, Dr. Smith (05/25) - probable passed biliary stone - NPO after MN - lap choley with Dr. Shaw 05/26 - Supportive care - DVT prophylaxis with SCDs for now Hypothyroidism Hx of medullary thyroid cancer - Cont. home meds, Cytomel 15mg alternating with 20mcg dose every other day GERD Hx of Le's esophagus - PPI (2) Elevated LFTs Code(s): R94.5 - Abnormal results of liver function studies Status: Acute (3) Abdominal pain Code(s): R10.9 - Unspecified abdominal pain Status: Acute (3) Abdominal pain Qualifiers: Abdominal location: unspecified location Qualified Code(s): R10.9 - Unspecified abdominal pain
[2018-05-25] MEDS ORDERED: Sodium Chlor 0.9% Inj 500 ML IV.CONT ONE (22:30)
[2018-05-25] MEDS ORDERED: Chlorhexidine Gluconate 2% 1 Pack (2 Cloths) TOPICAL ONE (22:30)
[2018-05-25] MEDS ORDERED: Sodium Chloride 0.9% 2 ML Flush PRN IV.FLUSH (23:40)
[2018-05-26] MEDS ORDERED: Chlorhexidine Gluconate 2% 1 Pack (2 Cloths) TOPICAL ONE (03:45)
[2018-05-26] MEDS ORDERED: Sodium Chlor 0.9% Inj 500 ML IV.SIG SCH (04:00)
[2018-05-26] MEDS: Thyroid 60 MG Tablet PO SCH (05:45)
[2018-05-26] MEDS: Liothyronine 5 MCG Tablet PO SCH (05:46)
[2018-05-26] MEDS ORDERED: Bupivacaine/Epinephrine Inj 0.25% 50 ML Vial ONE (09:02)
[2018-05-26] MEDS ORDERED: Lidocaine PF 1% Inj 5 ML Syringe INFILTRATN ONE (09:06)
[2018-05-26] MEDS ORDERED: Levofloxacin 500 mg Premix Inj 500 MG/100 ML PIGGYBACK IV.SIG ONE (09:20)
[2018-05-26] MEDS ORDERED: Morphine Inj 4 MG/ML Vial ONE (11:10)
[2018-05-26] MEDS ORDERED: fentaNYL Citrate Inj 100 MCG/2 ML Ampul ONE (11:10)
--- NOTE | 2018-05-26 12:01 | XR ---
EXAM DATE: 05/26/2018 12:00 AM EDT AGE/SEX: 67 years / Female INDICATIONS: Cholecystitis. CLINICAL DATA: This is the patient's initial encounter. Patient reports that signs and symptoms have been present for 1 day and indicates a pain score of Nonresponsive. MEDICAL/SURGICAL HISTORY: Non-responsive. Non-responsive. COMPARISON: [facility], MRCP, 05/07/2018. . FINDINGS: In the operating room, the cystic duct stump was injected and radiographs obtained. The examination demonstrates no abnormal filling defects within the common bile duct. There is a mild waist-like narrowing of the distal common bile duct with the more proximal aspect a mildly distended . Contrast is demonstrated to reflux into the main pancreatic duct within the head and also flows int o the second portion of the duodenum. Intrahepatic bile ducts and cystic duct stump demonstrate no ab normality. CONCLUSION: Mild waist-like narrowing of the distal common bile duct. However, no common duct stone is visualized . Electronically signed by: Jakob Najera MD 05/26/2018 12:00 PM EDT
[2018-05-26] MEDS: FLUoxetine 10 MG Capsule PO SCH (12:43)
[2018-05-26] MEDS: Sodium Chloride 0.9% 2 ML Flush BID IV.FLUSH SCH (12:43)
[2018-05-26] MEDS: Senna/Docusate Sodium 8.6/50 MG Tablet PO SCH ×2 (12:43→21:41)
--- NOTE | 2018-05-26 13:42 | P.PNIM ---
Subjective Interval history: Follow up S/P laparoscopic cholecystectomy 05/26 Patient reports minimal post-op discomfort Offers no other concerns or complaints at this time Physical Exam Vital signs: Vital Signs 05/25/18 16:00 05/25/18 19:05 05/26/18 00:00 Temperature 98.4 F 99.0 F 98.9 F Pulse Rate 80 74 70 Respiratory Rate 20 18 18 Blood Pressure 139/65 133/67 122/57 L Pulse Oximetry 97 96 96 05/26/18 04:02 05/26/18 08:00 05/26/18 11:02 Temperature 98.8 F 98.4 F Pulse Rate 64 66 70 Respiratory Rate 18 20 16 Blood Pressure 140/70 135/63 129/60 Pulse Oximetry 97 95 100 05/26/18 11:17 05/26/18 11:30 05/26/18 11:45 Temperature 97.7 F 97.7 F Pulse Rate 83 72 70 Respiratory Rate 16 14 14 Blood Pressure 126/67 132/65 132/66 Pulse Oximetry 100 95 95 Intake & Output 05/25/18 05/26/18 05/26/18 18:59 06:59 18:59 Intake Total 480 / 480 1000 / 1000 Output Total 30 / 30 Balance 480 / 480 970 / 970 Weight 79.9 kg Intake: Oral 480 / 480 Anesthesia Amount 1000 / 1000 Output: Estimated Blood Loss 30 Other: # Voids 4 2 Date of Last Bowel Movement 05/23/18 05/24/18 # Bowel Movements 0 Narrative: GENERAL: This is a well-nourished, well-developed patient, in no apparent distress. CARDIOVASCULAR: Regular rate and rhythm RESPIRATORY: Clear to auscultation. Breath sounds equal bilaterally. GASTROINTESTINAL: Abdomen soft, mildly tender, mildly distended. hypoactive bowel sounds MUSCULOSKELETAL: Extremities without clubbing, cyanosis, or edema. NEURO: Alert & Oriented x4 to person, place, time, situation. Moves all ext x4 Results - Labs CBC & Chem 7: 05/25/18 04:08 05/28/18 04:28 - Imaging Impressions Bile Acid Absorption NM 05/25/18 00:00 CONCLUSION: 1. There is a poor gallbladder ejection fraction of approximately 5% following CCK. This is nonspecific but can be seen with chronic gallbladder disease. 2. No mechanical biliary tract obstruction. 3. Bile reflux. Cholangiogram,Operative 05/26/18 00:00 CONCLUSION: Mild waist-like narrowing of the distal common bile duct. However, no common duct stone is visualized. Assessment and Plan - Assessment (1) Pancreatitis Code(s): K85.90 - Acute pancreatitis without necrosis or infection, unspecified Status: Acute Plan: Pancreatitis, likely related to gallstones Elevated LFTs Abdominal pain - Pt is a 67 y/o female with GERD, Le's esophagus, CHAPIS, and hx of medullary thyroid cancer. - She presented to the ED at [facility] on 05/24/18 with complaints of abdominal, which began about 1 month ago intermittently - Outpt labs on 04/26/18 revealed TBili 4.5, AST 269, ALT 362, AlkPhos 166. - Outpt Abd US (04/26/18) revealed numerous gallstones, mild gallbladder wall thickening with distension of the gallbladder and a dilated CBD to 9.4mm with no filing defects noted. - Pt was sent to see GI as an outpt. Repeat labs on 04/28/18 noted Tbili 0.6, AST 45, ALT 162, AlkPhos 133 and lipase 354. 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 - Pt had followed up with General Surgery, Dr. Lynch, and pt states that she had been planned for outpt cholecystectomy tomorrow. Yesterday she developed increased abdominal pain, N/V and was sent for repeat blood work today by her surgeon. - Outpt blood work (05/24) revealed Tbili 4.6, DBili 3.8, AST 311, AlkPhos 439, AlkPhos 164, Lipase 937. Pt was recommended to come to the ED for further evaluation. Her repeat labs after arriving to the ED noted Tbili 4.3, AST 241, ALT 398, AlkPhos 159. - IVF - Pain control PRN - Antiemetics PRN Cholangiopancreatography MRI 05/24/18 00:00 1. Cholelithiasis again noted. 2. Common duct is mildly prominent measuring 7 to 8 mm in diameter. This is an increase of 1 mm over the prior study. No filling defects identified within the common duct. No intrahepatic biliary ductal dilatation is seen. 3. The thin linear T2 hyperintensity in the pancreatic body is unchanged again possibly representing a side branch IPMN. Bile Acid Absorption NM 05/25/18 00:00 1. There is a poor gallbladder ejection fraction of approximately 5% following CCK. This is nonspecific but can be seen with chronic gallbladder disease. 2. No mechanical biliary tract obstruction. 3. Bile reflux. - bilirubin & LFTs are improving - Case d/w Gastroenterology, Dr. Smith (05/25) - probable passed biliary stone - S/P lap cholecystomy with Dr. Shaw 05/26 with intraop cholangiogram --> Mild waist-like narrowing of the distal common bile duct. However, no common duct stone is visualized. - CMP, amylase and lipase in AM - GI planning for ERCP tomorrow - diet per surgery - Supportive care - DVT prophylaxis with SCDs for now Hypothyroidism Hx of medullary thyroid cancer - Cont. home meds, Cytomel 15mg alternating with 20mcg dose every other day GERD Hx of Le's esophagus - PPI (2) Elevated LFTs Code(s): R94.5 - Abnormal results of liver function studies Status: Acute (3) Abdominal pain Code(s): R10.9 - Unspecified abdominal pain Status: Acute - Attending Attestation Patient examined. Assessment and plan formulated with Christianne Gomes PA-C. I agree with the above. (3) Abdominal pain Qualifiers: Abdominal location: unspecified location Qualified Code(s): R10.9 - Unspecified abdominal pain
--- NOTE | 2018-05-26 13:57 | P.PNGI ---
Subjective Interval history: Pt resting in bed, just returned from [facility]. Complaining of some abdominal soreness. Denies nausea, vomiting. <Sneha Garcia - Last Filed: 05/26/18 13:48> Physical Exam Vital signs: Vital Signs 05/25/18 16:00 05/25/18 19:05 05/26/18 00:00 Temperature 98.4 F 99.0 F 98.9 F Pulse Rate 80 74 70 Respiratory Rate 20 18 18 Blood Pressure 139/65 133/67 122/57 L Pulse Oximetry 97 96 96 05/26/18 04:02 05/26/18 08:00 05/26/18 11:02 Temperature 98.8 F 98.4 F Pulse Rate 64 66 70 Respiratory Rate 18 20 16 Blood Pressure 140/70 135/63 129/60 Pulse Oximetry 97 95 100 05/26/18 11:17 05/26/18 11:30 05/26/18 11:45 Temperature 97.7 F 97.7 F Pulse Rate 83 72 70 Respiratory Rate 16 14 14 Blood Pressure 126/67 132/65 132/66 Pulse Oximetry 100 95 95 Intake & Output 05/25/18 05/26/18 05/26/18 18:59 06:59 18:59 Intake Total 480 / 480 1000 / 1000 Output Total 30 / 30 Balance 480 / 480 970 / 970 Weight 79.9 kg Intake: Oral 480 / 480 Anesthesia Amount 1000 / 1000 Output: Estimated Blood Loss 30 / 30 Other: # Voids 4 2 Date of Last Bowel Movement 05/23/18 05/24/18 # Bowel Movements 0 - Constitutional no acute distress - Routine HEENT Exam Head: Present: normocephalic, atraumatic - Routine Respiratory Exam Absent: accessory muscle use - Routine Abdominal Exam Present: soft, normoactive bowel sounds Comments: surgical incision is clean and dry - Routine Skin Exam Present: dry, warm - Routine Neurological Exam Present: alert, oriented X3 <Sneha Garcia - Last Filed: 05/26/18 13:48> Vital signs: Vital Signs 05/25/18 19:05 05/26/18 00:00 05/26/18 04:02 Temperature 99.0 F 98.9 F 98.8 F Pulse Rate 74 70 64 Respiratory Rate 18 18 18 Blood Pressure 133/67 122/57 L 140/70 Pulse Oximetry 96 96 97 05/26/18 08:00 05/26/18 11:02 05/26/18 11:17 Temperature 98.4 F 97.7 F Pulse Rate 66 70 83 Respiratory Rate 20 16 16 Blood Pressure 135/63 129/60 126/67 Pulse Oximetry 95 100 100 05/26/18 11:30 05/26/18 11:45 Temperature 97.7 F Pulse Rate 72 70 Respiratory Rate 14 14 Blood Pressure 132/65 132/66 Pulse Oximetry 95 95 Intake & Output 05/25/18 05/26/18 05/26/18 18:59 06:59 18:59 Intake Total 480 / 480 1000 / 1000 Output Total Balance 480 / 480 970 / 970 Weight 79.9 kg Intake: Oral 480 / 480 Anesthesia Amount 1000 / 1000 Output: Estimated Blood Loss Other: # Voids 4 2 Date of Last Bowel Movement 05/23/18 05/24/18 # Bowel Movements 0 <Page Smith - Last Filed: 05/26/18 16:01> Results - Labs CBC & Chem 7: 05/25/18 04:08 05/25/18 04:08 - Imaging Impressions Bile Acid Absorption NM 05/25/18 00:00 CONCLUSION: 1. There is a poor gallbladder ejection fraction of approximately 5% following CCK. This is nonspecific but can be seen with chronic gallbladder disease. 2. No mechanical biliary tract obstruction. 3. Bile reflux. Cholangiogram,Operative 05/26/18 00:00 CONCLUSION: Mild waist-like narrowing of the distal common bile duct. However, no common duct stone is visualized. <Sneha Garcia - Last Filed: 05/26/18 13:48> - Labs CBC & Chem 7: 05/25/18 04:08 05/25/18 04:08 - Imaging Impressions Cholangiogram,Operative 05/26/18 00:00 CONCLUSION: Mild waist-like narrowing of the distal common bile duct. However, no common duct stone is visualized. <Page Smith - Last Filed: 05/26/18 16:01> Assessment and Plan - Plan Assessment: - Elevated LFTs MRCP (05/24) Cholelithiasis again noted. Common duct is mildly prominent measuring 7 to 8 mm in diameter. This is an increase of 1 mm over the prior study. No filling defects identified within the common duct. No intrahepatic biliary ductal dilatation is seen. The thin linear T2 hyperintensity in the pancreatic body is unchanged again possibly representing a side branch IPMN. HIDA scan (05/25) There is a poor gallbladder ejection fraction of approximately 5% following CCK. This is nonspecific but can be seen with chronic gallbladder disease. No mechanical biliary tract obstruction. Bile reflux. S/P lap elmer today with intraop cholangiogram --> Mild waist-like narrowing of the distal common bile duct. However, no common duct stone is visualized. Plan: ERCP tomorrow Obtain consent OK for clear liquids today NPO after MN Repeat LFTs Pain control Antiemetics PRN Further recommendations to follow Pt has been seen and examined by myself and Dr. Smith and this note is written on his behalf <Sneha Garcia - Last Filed: 05/26/18 13:48> - Plan Seen and examined with [facility], s/p lap elmer with IOC. ? tightening of CBD. ERCP and repeat labs planned for tomorrow morning. Discussed with Dr Hodge. The exam, history, and the medical decision-making described in the above note were completed with the assistance of the mid-level provider. I reviewed and agree with the findings presented. I attest that I had a [id number] encounter with the patient on the same day, and personally performed and documented my assessment and findings in the medical record. <Page Smith - Last Filed: 05/26/18 16:01>
[2018-05-26] MEDS: Morphine Inj 4 MG/ML Vial IV.PUSH PRN ×2 (14:44→21:41)
--- NOTE | 2018-05-26 20:57 | ECG ---
Date Performed: 05/26/2018 Time Performed: 04:31:06 PTAGE: 67 years EKG: Sinus rhythm --- Suspect arm lead reversal - Low QRS voltages in precordial leads Borderline ECG NO PREVIOUS TRACING Since the previous tracing, no significant change noted DOCTOR: Tono Morales Interpretating Date/Time 05/26/2018 20:55:56
[2018-05-27] MEDS: Sodium Chloride 0.9% 2 ML Flush BID IV.FLUSH SCH ×2 (00:39→15:08)
[2018-05-27] MEDS ORDERED: Liothyronine 5 MCG Tablet PO SCH (06:00)
[2018-05-27] MEDS: Thyroid 60 MG Tablet PO SCH (06:14)
[2018-05-27 07:17] LABS: Albumin 2.8 g/dL (3.4-5.0); Amylase 15 U/L (25-115); Anion Gap 7 meq/L (5-15); Aspartate Aminotransferase 30 U/L (15-37); Blood Urea Nitrogen 7 mg/dL (7-18); Carbon Dioxide 29.8 meq/L (21.0-32.0); Chloride 103 meq/L (98-107); Glomerular Filtration Rate Greater Than 89 mL/min (>89); Glucose,Random 101 mg/dL (74-106); Lipase 56 U/L (73-393); Potassium 3.2 meq/L (3.5-5.1); Sodium 140 meq/L (136-145)
[2018-05-27 07:18] LABS: Alanine Aminotransferase 132 U/L (10-53)
[2018-05-27 07:20] LABS: Alkaline Phosphatase 122 U/L (45-117); Total Protein 6.4 g/dL (6.4-8.2)
[2018-05-27] MEDS ORDERED: Potassium Chloride 25 MEQ Effervescent Tablet PO ONE (09:52)
[2018-05-27] MEDS ORDERED: Lidocaine PF 1% Inj 5 ML Syringe INFILTRATN ONE (12:02)
[2018-05-27] MEDS ORDERED: Succinylcholine Inj 100 MG/5 ML Syringe IV.PUSH ONE (12:02)
--- NOTE | 2018-05-27 13:02 | GIPROC ---
[facility] [address] [facility]. [facility], [id number] ERCP PROCEDURE REPORT EXAM DATE: 05/27/2018 PATIENT NAME: Evie Patricia MR #: [id number] BIRTHDATE: 1950 ATTENDING: Page Smith MD ORDER #: [id number] FUR DESIGNER: Diana Elizabeth and Malathi Hendricks STATUS: inpatient INDICATIONS: The patient is a 67 yr old female here for an ERCP due to abdominal pain of suspected biliary origin and abnormal MRCP PROCEDURE PERFORMED: ERCP, diagnostic MEDICATIONS: None and Per Anesthesia. CONSENT: The patient understands the risks and benefits of the procedure and understands that these risks include, but are not limited to: sedation, allergic reaction, infection, perforation and/or bleeding. Alternative means of evaluation and treatment include, among others: physical exam, x-rays, and/or surgical intervention. The patient elects to proceed with this endoscopic procedure. medical equipment was checked for proper function. Hand hygiene and appropriate measures for infection prevention was taken. After the risks, benefits and alternatives of the procedure were thoroughly explained, Informed was verified, confirmed and timeout was successfully executed by the treatment team. With the patient in left semi-prone position, medications were administered intravenously.The Pentax [id number] was passed from the mouth into the esophagus and further advanced from the esophagus into the stomach. From stomach scope was directed to the second portion of the duodenum. Major papilla was aligned with the duodenoscope. The scope position was confirmed fluoroscopically. Rest of the findings/therapeutics are given below. The scope was then completely withdrawn from the patient and the procedure completed. The pulse, BP, and O2 saturation were monitored and documented by the physician and the nursing staff throughout the entire procedure. The patient was cared for as planned according to standard protocol. The patient was then discharged to recovery in stable condition and with appropriate post procedure care. The ampulla was located the second portion of the duodenum, in a position more proximal than normal. The ampulla appeared normal. The biliary tree appeared normal with no evidence of stricture or dilation. Normal Pancreatic duct. ADVERSE EVENT: There were no complications. IMPRESSIONS: 1. Normal appearing ampulla 2. The biliary tree appeared normal with no evidence of stricture or dilation 3. Normal Pancreatic duct RECOMMENDATIONS: Liver enzymes REPEAT EXAM: Return as needed for ERCP Page Smith MD eSigned: Page Smith MD 05/27/2018 1:02 PM cc: Reji Hodge M.D.
--- NOTE | 2018-05-27 14:13 | FL ---
EXAM DATE: 05/27/2018 12:00 AM EDT AGE/SEX: 67 years / Female INDICATIONS: narrowing of the distal common bile duct. CLINICAL DATA: This is the patient's subsequent encounter. Patient reports that signs and symptoms h ave been present for 4 - 6 days and indicates a pain score of Nonresponsive. MEDICAL/SURGICAL HISTORY: Non-responsive. Non-responsive. COMPARISON: [facility], CHOLANGIOGRAM OPERATIVE, 05/26/2018. . FINDINGS: An ERCP was performed by the ordering physician. The images demonstrate mild narrowing of the mid co mmon bile duct unchanged from exam on May 26. No other filling defects identified. CONCLUSION: Stable mild narrowing of the common bile duct. Electronically signed by: Jeff Jaramillo MD 05/27/2018 2:11 PM EDT
[2018-05-27] MEDS: Senna/Docusate Sodium 8.6/50 MG Tablet PO SCH ×2 (15:02→21:46)
[2018-05-27] MEDS: Morphine Inj 4 MG/ML Vial IV.PUSH PRN (15:03)
[2018-05-27] MEDS: FLUoxetine 10 MG Capsule PO SCH (15:03)
[2018-05-27] MEDS: Potassium Chlor 10 mEq Premix 10 MEQ/100 ML PIGGYBACK IV.SIG SCH ×2 (15:06→20:56)
--- NOTE | 2018-05-27 16:12 | P.PNIM ---
Subjective Interval history: No new complaints. Pt is eager for discharge to home. Physical Exam Vital signs: 05/27/18 13:36 Temperature 98.3 F Pulse Rate 63 Respiratory Rate 20 Blood Pressure 151/64 H Pulse Oximetry 95 Narrative: GENERAL: This is a well-nourished, well-developed patient, in no apparent distress. CARDIOVASCULAR: Regular rate and rhythm RESPIRATORY: Clear to auscultation. Breath sounds equal bilaterally. GASTROINTESTINAL: Abdomen soft, mildly tender, mildly distended. hypoactive bowel sounds MUSCULOSKELETAL: Extremities without clubbing, cyanosis, or edema. NEURO: Alert & Oriented x4 to person, place, time, situation. Moves all ext x4 Results - Labs CBC & Chem 7: 05/25/18 04:08 05/28/18 04:28 Laboratory Results - last 24 hr 05/26/18 05/26/18 05/27/18 18:22 18:22 05:25 Sodium 140 Potassium 3.2 L Chloride 103 Carbon Dioxide 29.8 Anion Gap 7 BUN 7 Creatinine 0.56 Estimated GFR Greater than 89 Random Glucose 101 Calcium 8.0 L Total Bilirubin 0.7 AST 30 ALT 132 H Alkaline Phosphatase 122 H Total Protein 6.4 Albumin 2.8 L Amylase 15 L Lipase 56 L Tumor Marker AFP 1.8 CA 19-9 Antigen 26.8 - Imaging Cholangiopancreatography MRI 05/24/18 00:00 CONCLUSION: 1. Cholelithiasis again noted. 2. Common duct is mildly prominent measuring 7 to 8 mm in diameter. This is an increase of 1 mm over the prior study. No filling defects identified within the common duct. No intrahepatic biliary ductal dilatation is seen. 3. The thin linear T2 hyperintensity in the pancreatic body is unchanged again possibly representing a side branch IPMN. Bile Acid Absorption NM 05/25/18 1. There is a poor gallbladder ejection fraction of approximately 5% following CCK. This is nonspecific but can be seen with chronic gallbladder disease. 2. No mechanical biliary tract obstruction. 3. Bile reflux. Cholangiogram,Operative 05/26/18 Mild waist-like narrowing of the distal common bile duct. However, no common duct stone is visualized. GI Procedure 05/27/18 Stable mild narrowing of the common bile duct. Assessment and Plan - Assessment (1) Pancreatitis Code(s): K85.90 - Acute pancreatitis without necrosis or infection, unspecified Status: Acute Plan: Pancreatitis, likely related to gallstones Elevated LFTs Abdominal pain - Pt is a 67 y/o female with GERD, Le's esophagus, CHAPIS, and hx of medullary thyroid cancer. - She presented to the ED at [facility] on 05/24/18 with complaints of abdominal, which began about 1 month ago intermittently - Outpt labs on 04/26/18 revealed TBili 4.5, AST 269, ALT 362, AlkPhos 166. - Outpt Abd US (04/26/18) revealed numerous gallstones, mild gallbladder wall thickening with distension of the gallbladder and a dilated CBD to 9.4mm with no filing defects noted. - Pt was sent to see GI as an outpt. Repeat labs on 04/28/18 noted Tbili 0.6, AST 45, ALT 162, AlkPhos 133 and lipase 354. 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 - Pt had followed up with General Surgery, Dr. Lynch, and pt states that she had been planned for outpt cholecystectomy tomorrow. Yesterday she developed increased abdominal pain, N/V and was sent for repeat blood work today by her surgeon. - Outpt blood work (05/24) revealed Tbili 4.6, DBili 3.8, AST 311, AlkPhos 439, AlkPhos 164, Lipase 937. Pt was recommended to come to the ED for further evaluation. Her repeat labs after arriving to the ED noted Tbili 4.3, AST 241, ALT 398, AlkPhos 159. - IVF - Pain control PRN - Antiemetics PRN Cholangiopancreatography MRI 05/24/18 00:00 1. Cholelithiasis again noted. 2. Common duct is mildly prominent measuring 7 to 8 mm in diameter. This is an increase of 1 mm over the prior study. No filling defects identified within the common duct. No intrahepatic biliary ductal dilatation is seen. 3. The thin linear T2 hyperintensity in the pancreatic body is unchanged again possibly representing a side branch IPMN. Bile Acid Absorption NM 05/25/18 00:00 1. There is a poor gallbladder ejection fraction of approximately 5% following CCK. This is nonspecific but can be seen with chronic gallbladder disease. 2. No mechanical biliary tract obstruction. 3. Bile reflux. - bilirubin & LFTs are improving - Case d/w Gastroenterology, Dr. Smith (05/25) - probable passed biliary stone - S/P lap cholecystomy with Dr. Shaw 05/26 with intraop cholangiogram --> Mild waist-like narrowing of the distal common bile duct. However, no common duct stone is visualized. ERCP (05/27) with Dr. Smith Stable mild narrowing of the common bile duct. - repeat CMP in AM - will discharge to home if labs continue to improve & pt remains clinically stable. - diet per surgery - Supportive care - DVT prophylaxis with SCDs for now Hypothyroidism Hx of medullary thyroid cancer - Cont. home meds, Cytomel 15mg alternating with 20mcg dose every other day GERD Hx of Le's esophagus - PPI (2) Elevated LFTs Code(s): R94.5 - Abnormal results of liver function studies Status: Acute (3) Abdominal pain Code(s): R10.9 - Unspecified abdominal pain Status: Acute (3) Abdominal pain Qualifiers: Abdominal location: unspecified location Qualified Code(s): R10.9 - Unspecified abdominal pain
[2018-05-27 20:16] VITALS: RESP 16
[2018-05-28 05:17] LABS: Alkaline Phosphatase 126 U/L (45-117); Total Protein 6.2 g/dL (6.4-8.2)
[2018-05-28 05:18] LABS: Alanine Aminotransferase 118 U/L (10-53); Albumin 2.6 g/dL (3.4-5.0); Anion Gap 7 meq/L (5-15); Aspartate Aminotransferase 57 U/L (15-37); Blood Urea Nitrogen 10 mg/dL (7-18); Calcium 8.1 mg/dL (8.5-10.1); Carbon Dioxide 31.1 meq/L (21.0-32.0); Chloride 105 meq/L (98-107); Glomerular Filtration Rate Greater Than 89 mL/min (>89); Glucose,Random 93 mg/dL (74-106); Potassium 3.8 meq/L (3.5-5.1); Sodium 143 meq/L (136-145)
[2018-05-28] MEDS: Acetaminophen 325 MG Tablet PO PRN (06:37)
[2018-05-28] MEDS: Liothyronine 5 MCG Tablet PO SCH (06:38)
[2018-05-28] MEDS: Thyroid 60 MG Tablet PO SCH (06:38)
[2018-05-28] MEDS: Sodium Chloride 0.9% 2 ML Flush BID IV.FLUSH SCH ×2 (09:01→09:07)
[2018-05-28] MEDS: Senna/Docusate Sodium 8.6/50 MG Tablet PO SCH (09:06)
[2018-05-28] MEDS: FLUoxetine 10 MG Capsule PO SCH (09:06)
[2018-05-28 11:48] VITALS: BP 112/59; PULSE 63; TEMP 98.3; O2SAT 93
--- NOTE | 2018-05-28 12:10 | P.DS ---
<Christianne Gomes W - Last Filed: 05/28/18 12:06> Date of admission: 05/24/18 18:06 Primary care physician: Rebeca Spencer MD Attending physician on discharge: Aydin Kwan Anticipated date of discharge: 05/28/18 Brief History from admission: Mrs. Patricia is a 67 y/o female with GERD, Le's esophagus, CHAPIS, and hx of medullary thyroid cancer. She presented to the ED at [facility] on 05/24/18 with complaints of abdominal. She states that this began about 1 month ago intermittently and was seen at [facility] urgent care for evaluation. She was sent for labs and abdominal US. Her labs on 04/26/18 revealed TBili 4.5, AST 269, ALT 362 , AlkPhos 166. Her Abd US (04/26/18) revealed numerous gallstones, mild gallbladder wall thickening with distension of the gallbladder and a dilated CBD to 9.4mm with no filing defects noted. Pt was sent to see GI as an outpt. Repeat labs on 04/28/18 noted Tbili 0.6, AST 45, ALT 162, AlkPhos 133 and lipase 354. 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 Pt had followed up with General Surgery, Dr. Lynch, and pt states that she had been planned for outpt cholecystectomy tomorrow. Yesterday she developed increased abdominal pain, N/V and was sent for repeat blood work today by her surgeon. The blood work revealed Tbili 4.6, DBili 3.8, AST 311, AlkPhos 439, AlkPhos 164, Lipase 937. Pt was recommended to come to the ED for further evaluation. Her repeat labs after arriving to the ED noted Tbili 4.3, AST 241, ALT 398, AlkPhos 159. Pt was given pain medications and antiemetics and is currently comfortable and denies any nausea/vomiting. Past Medical Hx: Anxiety Arthritis Hx of Le's esophagus GERD Hx of medullary thyroid cancer s/p thyroidectomy Hypothyroidism Depression Allergic rhinitis Past Surgical Hx: Thyroidectomy Appendectomy Tubal ligation Hysterectomy Laparoscopy Lumbar laminectomy EGD/colonoscopy on 04/08/2017 --> reflux esophagitis, acute gastritis, mild diverticulosis, internal hemorrhoids Family Hx: Father with hx of colon cancer, bone cancer, thyroid cancer Brother with hx of thyroid cancer Social Hx: Rare social alcohol use Denies any tobacco or illicit drug use DS: Diagnosis - Discharge Diagnosis (1) Pancreatitis Status: Acute (2) Elevated LFTs Status: Acute (3) Abdominal pain Status: Acute DS: Summary Hospital Course: Pancreatitis, likely related to gallstones Elevated LFTs Abdominal pain - Pt is a 67 y/o female with GERD, Le's esophagus, CHAPIS, and hx of medullary thyroid cancer. - She presented to the ED at [facility] [place] on 05/24/18 with complaints of abdominal, which began about 1 month ago intermittently - Outpt labs on 04/26/18 revealed TBili 4.5, AST 269, ALT 362, AlkPhos 166. - Outpt Abd US (04/26/18) revealed numerous gallstones, mild gallbladder wall thickening with distension of the gallbladder and a dilated CBD to 9.4mm with no filing defects noted. - Pt was sent to see GI as an outpt. Repeat labs on 04/28/18 noted Tbili 0.6, AST 45, ALT 162, AlkPhos 133 and lipase 354. 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 - Pt had followed up with General Surgery, Dr. Lynch, and pt states that she had been planned for outpt cholecystectomy tomorrow. Yesterday she developed increased abdominal pain, N/V and was sent for repeat blood work today by her surgeon. - Outpt blood work (05/24) revealed Tbili 4.6, DBili 3.8, AST 311, AlkPhos 439, AlkPhos 164, Lipase 937. Pt was recommended to come to the ED for further evaluation. Her repeat labs after arriving to the ED noted Tbili 4.3, AST 241, ALT 398, AlkPhos 159. - IVF - Pain control PRN - Antiemetics PRN Cholangiopancreatography MRI 05/24/18 00:00 1. Cholelithiasis again noted. 2. Common duct is mildly prominent measuring 7 to 8 mm in diameter. This is an increase of 1 mm over the prior study. No filling defects identified within the common duct. No intrahepatic biliary ductal dilatation is seen. 3. The thin linear T2 hyperintensity in the pancreatic body is unchanged again possibly representing a side branch IPMN. Bile Acid Absorption NM 05/25/18 00:00 1. There is a poor gallbladder ejection fraction of approximately 5% following CCK. This is nonspecific but can be seen with chronic gallbladder disease. 2. No mechanical biliary tract obstruction. 3. Bile reflux. - bilirubin & LFTs are improving - Case d/w Gastroenterology, Dr. Smith (05/25) - probable passed biliary stone - S/P lap cholecystomy with Dr. Shaw 05/26 with intraop cholangiogram --> Mild waist-like narrowing of the distal common bile duct. However, no common duct stone is visualized. ERCP (05/27) with Dr. Smith Stable mild narrowing of the common bile duct. - repeat CMP 05/28 reveals: total bilirubin 0.6, AST 57, ALT 118, Alk Phos 126 - Supportive care - DVT prophylaxis with SCDs for now Hypothyroidism Hx of medullary thyroid cancer - Cont. home meds, Cytomel 15mg alternating with 20mcg dose every other day GERD Hx of Le's esophagus - PPI - Time Spent with Patient Total time spent providing and/or coordinating discharge services: Greater than 30 minutes Exam Vital signs: Vital Signs 05/27/18 13:11 05/27/18 13:15 05/27/18 13:30 Temperature 98.1 F Pulse Rate 67 66 64 Respiratory Rate 20 19 16 Blood Pressure 127/66 139/71 144/69 H Pulse Oximetry 95 98 96 05/27/18 13:36 05/27/18 16:00 05/27/18 20:00 Temperature 98.3 F 98.3 F 97.6 F Pulse Rate 63 61 61 Respiratory Rate 20 20 16 Blood Pressure 151/64 H 146/81 H 136/72 Pulse Oximetry 95 94 L 97 05/28/18 00:00 05/28/18 04:00 05/28/18 08:00 Temperature 97.5 F L 97.9 F 98 F Pulse Rate 56 L 60 55 L Respiratory Rate 16 16 16 Blood Pressure 137/83 130/79 120/63 Pulse Oximetry 98 98 95 05/28/18 11:46 Temperature 98.3 F Pulse Rate 63 Respiratory Rate 16 Blood Pressure 112/59 L Pulse Oximetry 93 L Intake & Output 05/27/18 05/28/18 05/28/18 18:59 06:59 18:59 Intake Total 1130 / 1130 Output Total 30 / 30 Balance 1100 / 1100 Weight 76.8 kg Intake: IV 50 / 50 KCl 10 mEq Premix Inj 10 meq In 50 / 50 100 ml @ 100 mls/hr IV.SIG Q1H [facility] Rx#:[id number] Oral 480 / 480 Anesthesia Amount 600 / 600 Output: Estimated Blood Loss 30 Other: # Voids 4 3 Date of Last Bowel Movement 05/26/18 05/25/18 # Bowel Movements 0 Narrative: GENERAL: This is a well-nourished, well-developed patient, in no apparent distress. CARDIOVASCULAR: Regular rate and rhythm RESPIRATORY: Clear to auscultation. Breath sounds equal bilaterally. GASTROINTESTINAL: Abdomen soft, mildly tender, nondistended. normoactive bowel sounds MUSCULOSKELETAL: Extremities without clubbing, cyanosis, or edema. NEURO: Alert & Oriented x4 to person, place, time, situation. Moves all ext x4 Results Procedures completed during hospitalization: lap cholecystomy with Dr. Shaw 05/26 with intraop cholangiogram --> Mild waist-like narrowing of the distal common bile duct. However, no common duct stone is visualized. ERCP (05/27) with Dr. Smith Stable mild narrowing of the common bile duct. Labs on day of discharge: Labs from last 24 hours 05/28/18 04:28 Sodium 143 Potassium 3.8 Chloride 105 Carbon Dioxide 31.1 Anion Gap 7 BUN 10 Creatinine 0.59 Estimated GFR Greater than 89 Random Glucose 93 Calcium 8.1 L Total Bilirubin 0.6 AST 57 H ALT 118 H Alkaline Phosphatase 126 H Total Protein 6.2 L Albumin 2.6 L - Impressions ITS Impressions Cholangiopancreatography MRI 05/24/18 00:00 CONCLUSION: 1. Cholelithiasis again noted. 2. Common duct is mildly prominent measuring 7 to 8 mm in diameter. This is an increase of 1 mm over the prior study. No filling defects identified within the common duct. No intrahepatic biliary ductal dilatation is seen. 3. The thin linear T2 hyperintensity in the pancreatic body is unchanged again possibly representing a side branch IPMN. Bile Acid Absorption NM 05/25/18 00:00 CONCLUSION: 1. There is a poor gallbladder ejection fraction of approximately 5% following CCK. This is nonspecific but can be seen with chronic gallbladder disease. 2. No mechanical biliary tract obstruction. 3. Bile reflux. Cholangiogram,Operative 05/26/18 00:00 CONCLUSION: Mild waist-like narrowing of the distal common bile duct. However, no common duct stone is visualized. GI Procedure 05/27/18 00:00 CONCLUSION: Stable mild narrowing of the common bile duct. <Aydin Kwan - Last Filed: 06/05/18 21:35> Date of admission: 05/24/18 18:06 Primary care physician: Rebeca Spencer MD DS: Diagnosis - Discharge Diagnosis (1) Pancreatitis Status: Acute (2) Elevated LFTs Status: Acute (3) Abdominal pain Status: Acute DS: Summary Hospital Course: Patient examined. Assessment and plan formulated with Christianne Gomes PA-C. I agree with the above. - Time Spent with Patient Total time spent providing and/or coordinating discharge services: Results - Impressions ITS Impressions Cholangiopancreatography MRI 05/24/18 00:00 CONCLUSION: 1. Cholelithiasis again noted. 2. Common duct is mildly prominent measuring 7 to 8 mm in diameter. This is an increase of 1 mm over the prior study. No filling defects identified within the common duct. No intrahepatic biliary ductal dilatation is seen. 3. The thin linear T2 hyperintensity in the pancreatic body is unchanged again possibly representing a side branch IPMN. Bile Acid Absorption NM 05/25/18 00:00 CONCLUSION: 1. There is a poor gallbladder ejection fraction of approximately 5% following CCK. This is nonspecific but can be seen with chronic gallbladder disease. 2. No mechanical biliary tract obstruction. 3. Bile reflux. Cholangiogram,Operative 05/26/18 00:00 CONCLUSION: Mild waist-like narrowing of the distal common bile duct. However, no common duct stone is visualized. GI Procedure 05/27/18 00:00 CONCLUSION: Stable mild narrowing of the common bile duct. Discharge Plan - Discharge Order Discharge Orders: Discharge Order (Routine); Ordered 05/28/18 Ordered By: Aydin Kwan - Discharge Details Anticipated Discharge Date: 05/28/18 - Physicians Team Primary Care Provider: Rebeca Spencer Attending Provider: Aydin Kwan Other Providers: Page Smith MD ; Reji Hodge MD
--- NOTE | 2018-05-28 12:50 | P.PNGI ---
Subjective Interval history: Pt resting in bed, at bedside, she in anxious to go home. Denies nausea , vomiting, abdominal pain. Tolerating PO. Minimal soreness to surgical site. Has been having BMs. <BobbycarylSneha - Last Filed: 05/28/18 12:48> Physical Exam Vital signs: Vital Signs 05/27/18 13:11 05/27/18 13:15 05/27/18 13:30 Temperature 98.1 F Pulse Rate 67 66 64 Respiratory Rate 20 19 16 Blood Pressure 127/66 139/71 144/69 H Pulse Oximetry 95 98 96 05/27/18 13:36 05/27/18 16:00 05/27/18 20:00 Temperature 98.3 F 98.3 F 97.6 F Pulse Rate 63 61 61 Respiratory Rate 20 20 16 Blood Pressure 151/64 H 146/81 H 136/72 Pulse Oximetry 95 94 L 97 05/28/18 00:00 05/28/18 04:00 05/28/18 08:00 Temperature 97.5 F L 97.9 F 98 F Pulse Rate 56 L 60 55 L Respiratory Rate 16 16 16 Blood Pressure 137/83 130/79 120/63 Pulse Oximetry 98 98 95 05/28/18 11:46 Temperature 98.3 F Pulse Rate 63 Respiratory Rate 16 Blood Pressure 112/59 L Pulse Oximetry 93 L Intake & Output 05/27/18 05/28/18 05/28/18 18:59 06:59 18:59 Intake Total 1130 / 1130 Output Total 30 / 30 Balance 1100 / 1100 Weight 76.8 kg Intake: IV 50 / 50 KCl 10 mEq Premix Inj 10 meq In 50 / 50 100 ml @ 100 mls/hr IV.SIG Q1H [facility] Rx#:[id number] Oral 480 / 480 Anesthesia Amount 600 / 600 Output: Estimated Blood Loss 30 / 30 Other: # Voids 4 3 Date of Last Bowel Movement 05/26/18 05/25/18 # Bowel Movements 0 - Constitutional no acute distress - Routine HEENT Exam Head: Present: normocephalic, atraumatic - Routine Respiratory Exam Absent: accessory muscle use - Routine Cardiovascular Exam Present: RRR - Routine Abdominal Exam Present: soft, normoactive bowel sounds, tenderness (mild tenderness to surgical site ). Absent: distended - Routine Skin Exam Present: dry, warm - Routine Neurological Exam Present: alert, oriented X3 <Sneha Garcia - Last Filed: 05/28/18 12:48> Vital signs: Vital Signs 05/27/18 16:00 05/27/18 20:00 05/28/18 00:00 Temperature 98.3 F 97.6 F 97.5 F L Pulse Rate 61 61 56 L Respiratory Rate 20 16 16 Blood Pressure 146/81 H 136/72 137/83 Pulse Oximetry 94 L 97 98 05/28/18 04:00 05/28/18 08:00 05/28/18 11:46 Temperature 97.9 F 98 F 98.3 F Pulse Rate 60 55 L 63 Respiratory Rate 16 16 16 Blood Pressure 130/79 120/63 112/59 L Pulse Oximetry 98 95 93 L Intake & Output 05/27/18 05/28/18 05/28/18 18:59 06:59 18:59 Intake Total 1130 / 1130 480 / 480 Output Total 30 / 30 Balance 1100 / 1100 480 / 480 Weight 76.8 kg Intake: IV 50 / 50 KCl 10 mEq Premix Inj 10 meq In 50 / 50 100 ml @ 100 mls/hr IV.SIG Q1H [facility] Rx#:[id number] Oral 480 / 480 480 / 480 Anesthesia Amount 600 / 600 Output: Estimated Blood Loss 30 / 30 Other: # Voids 4 3 5 Date of Last Bowel Movement 05/26/18 05/25/18 # Bowel Movements 0 1 <Page Smith - Last Filed: 05/28/18 15:50> Results - Labs CBC & Chem 7: 05/25/18 04:08 05/28/18 04:28 Laboratory Results - last 24 hr 05/28/18 04:28 Sodium 143 Potassium 3.8 Chloride 105 Carbon Dioxide 31.1 Anion Gap 7 BUN 10 Creatinine 0.59 Estimated GFR Greater than 89 Random Glucose 93 Calcium 8.1 L Total Bilirubin 0.6 AST 57 H ALT 118 H Alkaline Phosphatase 126 H Total Protein 6.2 L Albumin 2.6 L - Imaging Impressions GI Procedure 05/27/18 00:00 CONCLUSION: Stable mild narrowing of the common bile duct. - Procedures lap cholecystomy with Dr. Shaw 05/26 with intraop cholangiogram --> Mild waist-like narrowing of the distal common bile duct. However, no common duct stone is visualized. ERCP (05/27) with Dr. Smith Stable mild narrowing of the common bile duct. <Sneha Garcia - Last Filed: 05/28/18 12:48> - Labs CBC & Chem 7: 05/25/18 04:08 05/28/18 04:28 Laboratory Results - last 24 hr 05/28/18 04:28 Sodium 143 Potassium 3.8 Chloride 105 Carbon Dioxide 31.1 Anion Gap 7 BUN 10 Creatinine 0.59 Estimated GFR Greater than 89 Random Glucose 93 Calcium 8.1 L Total Bilirubin 0.6 AST 57 H ALT 118 H Alkaline Phosphatase 126 H Total Protein 6.2 L Albumin 2.6 L <Page Smith - Last Filed: 05/28/18 15:50> Assessment and Plan - Plan Assessment: - Elevated LFTs MRCP (05/24) Cholelithiasis again noted. Common duct is mildly prominent measuring 7 to 8 mm in diameter. This is an increase of 1 mm over the prior study. No filling defects identified within the common duct. No intrahepatic biliary ductal dilatation is seen. The thin linear T2 hyperintensity in the pancreatic body is unchanged again possibly representing a side branch IPMN. HIDA scan (05/25) There is a poor gallbladder ejection fraction of approximately 5% following CCK. This is nonspecific but can be seen with chronic gallbladder disease. No mechanical biliary tract obstruction. Bile reflux. S/P lap elmer today with intraop cholangiogram --> Mild waist-like narrowing of the distal common bile duct. However, no common duct stone is visualized. (05/28) S/P ERCP --> Normal appearing ampulla, biliary tree appeared normal with no evidence of stricture or dilatation. Normal pancreatic duct. LFTs trending down Plan: Tolerating diet Pain control Antiemetics PRN Pt is being discharged today by primary team Pt has been seen and examined by myself and Dr. Smith and this note is written on his behalf <Sneha Garcia - Last Filed: 05/28/18 12:48> - Plan Seen and examined with COMPUTER SYSTEMS ANALYST, doing well. S/p cholecystectomy and ERCP. NON specific narrowing of distal cbd. Monitor labs. GI fu upon dc. Thank you <Page Smith - Last Filed: 05/28/18 15:50>
--- NOTE | 2018-06-10 13:35 | MP ---
cc: Reji Hodge MD DATE OF OPERATION: 05/26/2018 PREOPERATIVE DIAGNOSIS: Cholelithiasis with recent gallstone pancreatitis. POSTOPERATIVE DIAGNOSIS: Cholelithiasis with recent gallstone pancreatitis. PROCEDURE PERFORMED: Laparoscopic cholecystectomy with intraoperative cholangiogram. SURGEON: Reji Hodge MD. ANESTHESIA: General endotracheal anesthesia. ESTIMATED BLOOD LOSS: Scant. FINDINGS: Gallbladder with stones, possible filling defect at the ampulla. SPECIMENS: Gallbladder with stones. COMPLICATIONS: None. DESCRIPTION OF PROCEDURE: The patient was brought to the operating room, placed on the operating table in supine position. Bilateral sequential inflation devices were placed on lower extremities. General anesthesia instituted. The abdomen was prepped and draped sterilely. The supraumbilical region anesthetized with 0.25% Marcaine with epinephrine. A skin incision was made. A 5 mm Optiview port placed under direct vision and pneumoperitoneum created. Under direct vision, a 12 mm subxiphoid and two 5 mm right upper quadrant ports were placed. Prior to placement of all ports, the skin and peritoneum anesthetized with 0.25% Marcaine with epinephrine. The patient was placed in reverse Trendelenburg position, right side up. The gallbladder was retracted into the upper abdomen. The hepatoduodenal ligament was incised. The cystic artery was identified. It was circumferentially dissected, it was ligated with Hemoclips and divided between the clips. The cystic duct was identified, circumferentially dissected. It was noted partially transected. A stab incision was made in the epigastrium. Cholangiogram catheter was placed into the cystic duct and secured with a Hemoclip. Cholangiogram was then performed using Hypaque contrast. The duct opacified, common hepatic as well as the common bile duct. At the ampulla, there appeared to be a filling defect. This was flushed. This defect did not move. Contrast did enter into the duodenum. At this point, the cholangiogram catheter was removed. The cystic duct was completely transected after being ligated with Hemoclips. The gallbladder was then removed from the liver bed using Bovie. Hemostasis achieved along the way using Bovie. The gallbladder was retrieved from the peritoneal cavity in an Endopouch through the 12 mm port site. The operative field was inspected. Hemoclips were intact. No evidence of bile leak or hemorrhage. CO2 was released. All ports were removed. All skin incisions closed with 4-0 Monocryl. Abdominal wall was cleaned and a sterile dressing placed. The patient was awakened and taken to the recovery room. MD FRIEDA Cabral/jerome/sergio , 12:42 PM , 12:52 PM MTDCierra
== END 2018-05-28 13:00 | disposition home or self-care (01) ==
LOC: NEPE 16:51 → NEDA 18:06 → N06 19:18
PROVIDERS: ADMIT Hospitalist; ATTEND Hospitalist